=== PATIENT | female | born 1945 | race Caucasian/White ===

== ENCOUNTER → 2016-10-19 | Outpatient (CLI) | payer BC ==
[2015-11-22 13:00] VITALS: BP 113/54
[~2016-10-19] MED LIST: ALPR0.5T PO; ASPI81TA2 PO; BISA5TAB4 PO; CETI10TA22 PO; ESCI20TA10 PO; GUAI12003 PO; HYDR-2666 PO; MORP15TA3 PO; PROAIR HFA8.5 GM INH; RANI150C PO; ROPI1TAB2 PO; SOLI10TA PO; VARE1TAB21 PO
--- NOTE | 2016-10-19 11:33 | KCIC ---
PROCEDURE MRI thoracic spine without contrast. HISTORY Thoracic pain. Bilateral numbness from mid thoracic inferiorly. No known injury. TECHNIQUE Sagittal T1, sagittal T2, sagittal STIR, axial T1, and axial T2 sequences are provided. COMPARISON None. FINDINGS Based on localizing series, the patient appears to have transitional anatomy with only 4 lumbar type vertebral bodies. Numbering for today's exam is counting from the dens. At the level of T4-T5, there is a left intradural extramedullary T1 isointense to cord T2 relatively hyperintense rounded mass measuring 12 x 9 x 9 millimeters. Cord is displaced to the right with cord hyperintensity and flattening, severe cord compression. No additional cord signal abnormality is identified. There are a few perineural cysts. There is no worrisome marrow lesion. There is endplate edema which appears degenerative at T2-T3 and at T6-T7, T7-T8, and T10-T11. There is mild endplate irregularity most notably T10-T11 and T8-T9. Slight anterolisthesis is noted at T1-T2 and T2-T3. Degenerative disc disease including shallow protrusions and disc bulges are noted throughout the thoracic spine. There is also facet hypertrophy in the lower thoracic spine beginning at T7-T8. At the level of T7-T8 there is minimal canal stenosis and at least moderate bilateral foraminal narrowing. There is mild left foraminal narrowing at T8-T9. At T10-T11 there is at least moderate bilateral foraminal narrowing. Report was called to Dr. Mccall at 1130. IMPRESSION - Intradural extramedullary rounded mass at the level of T4-T5 on the left. Differential considerations would include meningioma and nerve sheath tumor. Ependymoma or solitary drop metastasis are lesser considerations. Finding was not definitely present on a CT chest from November 08, 2015. - Significant cord flattening and cord hyperintensity at this level, may represent edema or myelomalacia. - There are degenerative changes noted throughout the thoracic spine as well, with several levels of foraminal narrowing, as described above. Electronically signed by: Wil Adame MD (October 19, 2016 11:32:26)
== END | disposition home or self-care (01) ==
LOC: KCIC MRI 09:06
PROVIDERS: ATTEND Family Medicine
DX: M54.6 Pain in thoracic spine (principal)
CPT/HCPCS: 72146

== ENCOUNTER → 2016-12-21 | Outpatient (CLI) | payer BC, MEDICARE ==
[2016-10-25 23:00] VITALS: BP 107/55
[~2016-12-21] MED LIST changes: +ASPI-630 PO; -ASPI81TA2 PO; -ESCI20TA10 PO; +GADOBUTROL 7.5 MMOL/7.5 ML VIAL IV ONE; -HYDR-2666 PO; +HYDR-2758 PO; +LEXAPRO20 MG PO; -SOLI10TA PO; +SOLI10TA2 PO
--- NOTE | 2016-12-21 14:48 | RAD ---
EXAM: MRI thoracic spine with and without contrast. HISTORY: Follow-up status post meningioma resection. TECHNIQUE: MRI of the thoracic spine was performed before and after the intravenous administration of 7.5 mL Gadavist. COMPARISON: October 23, 2016. FINDINGS: There are laminectomy changes from T4 through T6. There is no recurrent mass at this site. There is myelomalacia along the left lateral aspect of the cord at T4-5. There is a mild S-shaped thoracic scoliosis. No fractures are identified acutely. Endplate edema is secondary to moderate to severe degenerative disc disease from T6 through T9. It is moderate at T10-11 where there is a chronic inferior endplate Schmorl's node at T10. From T2 through T4, there are small posterior disc bulges. There is no central canal stenosis or neural foraminal stenosis. At T4-5, there is a moderate right foraminal protrusion without clear neural foraminal stenosis. There are small to moderate posterior disc bulges from T5 through T7. At T7-8, there is a moderate central and right paracentral protrusion. This abuts the anterior cord with mild deformity. Smaller disc protrusions and herniations at T9-11 do not result in central canal stenosis. Neural foraminal stenosis is mild to moderate bilaterally at T7-8 and on the left at T8-9. It is moderate on the left at T11-12. IMPRESSION: 1. Status post T4-T6 laminectomies and resection of a meningioma. No evidence of recurrence. Myelomalacia is again noted on the left at T4-5. 2. A moderate central protrusion at T8-9 results in mild anterior cord deformity. Smaller disc bulges and protrusions as above. 3. Moderate to severe mid and lower thoracic degenerative disc disease. 4. Multilevel bilateral mild to moderate neural foraminal stenosis as above. Electronically signed by: Will Muñoz MD (12/21/2016 2:45 PM) [id number]
== END | disposition home or self-care (01) ==
LOC: MRI 14:55
PROVIDERS: ATTEND Neurological Surgery
DX: M51.34 Other intervertebral disc degeneration, thoracic region (principal); G95.89 Other specified diseases of spinal cord; M48.04 Spinal stenosis, thoracic region
CPT/HCPCS: 72157; A9585

== ENCOUNTER → 2017-02-12 | Outpatient (CLI) | payer BC ==
[2016-10-25 23:00] VITALS: BP 107/55
[~2017-02-12] MED LIST changes: -GADOBUTROL 7.5 MMOL/7.5 ML VIAL IV ONE
--- NOTE | 2017-02-12 13:51 | KCIC ---
Examination: 2 views of the chest HISTORY: History of difficult breathing COMPARISON: 11/14/2016 FINDINGS: The cardiomediastinal silhouette grossly appears unremarkable. There is no acute infiltrate or visualized pneumothorax. Moderate degenerative changes thoracic spine. IMPRESSION: No acute cardiopulmonary findings Electronically signed by: Az De La Cruz MD (02/12/2017 1:47 PM) [facility]
== END | disposition home or self-care (01) ==
LOC: KCIC 11:57
PROVIDERS: ATTEND Family Medicine
DX: J44.9 Chronic obstructive pulmonary disease, unspecified (principal); M47.894 Other spondylosis, thoracic region; R93.8 Abnormal findings on diagnostic imaging of other specified body structures
CPT/HCPCS: 71020

== ENCOUNTER 2017-07-31 11:54 | Emergency (ER) | payer BC, MEDICARE ==
[2017-07-31 12:15] LABS: POC GLUCOSE 100 mg/dL (70-99)
[2017-07-31 12:15] LABS: ADD MAN DIFF? NO
[2017-07-31 12:25] LABS: BASO # 0.2 x10^3/uL (0.0-0.2); BASO % 2 % (0-3); EOS # 0.4 x10^3/uL (0.0-0.7); EOS % 4 % (0-3); HEMATOCRIT 43.9 % (36.0-47.0); HEMOGLOBIN 14.8 g/dL (12.0-15.5); LYMPH # 4.5 x10^3/uL (1.0-4.8); LYMPH % 46 % (24-48); MEAN CORPUSCULAR HEMOGLOBIN 32 pg (25-35); MEAN CORPUSCULAR HGB CONC 34 g/dL (31-37); MEAN CORPUSCULAR VOLUME 94 fL (79-100); MONO # 0.8 x10^3/uL (0.0-1.1); MONO % 8 % (0-9); NEUT # 3.9 x10^3uL (1.8-7.7); NEUT % 40 % (31-73); PLATELET COUNT 281 x10^3/uL (140-400); RED BLOOD COUNT 4.67 x10^6/uL (3.50-5.40); RED CELL DISTRIBUTION WIDTH 12.5 % (11.5-14.5); WHITE BLOOD COUNT 9.7 x10^3/uL (4.0-11.0)
[2017-07-31 12:31] LABS: ANION GAP 9 (6-14); BLOOD UREA NITROGEN 21 mg/dL (7-20); BUN/CREATININE RATIO 23 (6-20); CALCIUM 9.4 mg/dL (8.5-10.1); CARBON DIOXIDE 30 mmol/L (21-32); CHLORIDE 100 mmol/L (98-107); CREATININE 0.9 mg/dL (0.6-1.0); GFR 61.9; GLUCOSE 118 mg/dL (70-99); POTASSIUM 3.6 mmol/L (3.5-5.1); SODIUM 139 mmol/L (136-145)
[2017-07-31 12:36] LABS: ALBUMIN 3.7 g/dL (3.4-5.0); ALK PHOS 54 U/L (46-116); ALT (SGPT) 28 U/L (14-59); AST (SGOT) 20 U/L (15-37); TOTAL BILIRUBIN 0.3 mg/dL (0.2-1.0); TOTAL PROTEIN 7.5 g/dL (6.4-8.2)
[2017-07-31] MEDS: IV NORMAL SALINE 1000ML BAG 1,000 ML IV ×2 (12:59)
[2017-07-31] MEDS: ONDANSETRON PF 4 MG/2 ML VIAL. IV ×2 (13:00)
[2017-07-31 13:22] LABS: BILIRUBIN,URINE NEGATIVE (NEG); CLARITY,URINE CLEAR; COLOR,URINE YELLOW; GLUCOSE,URINE NEGATIVE (NEG); NITRITE,URINE NEGATIVE (NEG); PROTEIN,URINE NEGATIVE (NEG-TRACE); UROBILINOGEN,URINE 0.2 mg/dL (0.2 mg/dL)
[2017-07-31 13:36] LABS: BACTERIA,URINE MODERATE /HPF (0-FEW); HYALINE CASTS, URINE FEW /HPF; RBC,URINE 0 /HPF (0-2); SQUAMOUS EPITHELIAL CELL,UR MOD /LPF
[2017-07-31] MEDS: LIDO:MAALOX:DONNATAL 1:1:1 15 ML SINGLE DOSE SWSW ×2 (15:48)
== END 2017-07-31 16:03 | disposition home or self-care (01) ==
LOC: ER 11:54
DX: R55 Syncope and collapse (principal); R11.0 Nausea; R42 Dizziness and giddiness; R53.1 Weakness; G89.29 Other chronic pain; J44.9 Chronic obstructive pulmonary disease, unspecified; F32.9 Major depressive disorder, single episode, unspecified; E78.00 Pure hypercholesterolemia, unspecified; G25.81 Restless legs syndrome; Z90.710 Acquired absence of both cervix and uterus; Z91.048 Other nonmedicinal substance allergy status
CPT/HCPCS: 36415; 80053; 81001; 82962; 85025; 87086; 93005; 96361; 96374; 99285-25; J2405; J7030

== ENCOUNTER → 2017-08-20 | Outpatient (CLI) | payer BC, MEDICARE | END | disposition home or self-care (01) | LOC: ECHO 13:19 | DX: I08.2 Rheumatic disorders of both aortic and tricuspid valves (principal) | CPT/HCPCS: 93306 ==

== ENCOUNTER → 2017-11-13 | Outpatient (CLI) | payer BC | END | disposition home or self-care (01) | LOC: KCIC US 08:00 | DX: R10.12 Left upper quadrant pain (principal); I10 Essential (primary) hypertension; E11.9 Type 2 diabetes mellitus without complications; E78.5 Hyperlipidemia, unspecified | CPT/HCPCS: 76700 ==

== ENCOUNTER → 2017-12-05 | Outpatient (CLI) | payer BC | END | disposition home or self-care (01) | LOC: US 14:45 | DX: E04.1 Nontoxic single thyroid nodule (principal) | CPT/HCPCS: 76536 ==

== ENCOUNTER → 2017-12-26 | Outpatient (CLI) | payer BC ==
[~2017-12-26] MED LIST changes: -ALPR0.5T PO; -ASPI-630 PO; -BISA5TAB4 PO; -CETI10TA22 PO; -GUAI12003 PO; -HYDR-2758 PO; -LEXAPRO20 MG PO; +LIDOCAINE 1% Multi-Dose 50 ML VIAL. INJ; -MORP15TA3 PO; -PROAIR HFA8.5 GM INH; -RANI150C PO; -ROPI1TAB2 PO; -SOLI10TA2 PO; -VARE1TAB21 PO
== END | disposition home or self-care (01) ==
LOC: US 09:54
DX: E04.1 Nontoxic single thyroid nodule (principal)
CPT/HCPCS: 76942; 88173; 88305

== ENCOUNTER 2018-02-05 06:48 | Emergency (ER) | payer BC, MEDICARE ==
[~2018-02-05] VITALS: Ht 152.4 cm; Wt 86.2 kg
[~2018-02-05 06:48] MED LIST changes: +ALPR0.5T PO; +ASPI-630 PO; +BISA5TAB4 PO; +CETI10TA22 PO; +GUAI12003 PO; +HYDR-2758 PO; +LEXAPRO20 MG PO; -LIDOCAINE 1% Multi-Dose 50 ML VIAL. INJ; +MORP15TA3 PO; +PROAIR HFA8.5 GM INH; +RANI150C PO; +ROPI1TAB2 PO; +SOLI10TA2 PO; +TOLT2CAP PO; +VARE1TAB21 PO
--- NOTE | 2018-02-05 07:15 | PHYS DOC ---
Past Medical History Past Medical History: COPD, Depression, High Cholesterol Additional Past Medical Histor: seasonal allergies, T4-5 compression, restless leg Past Surgical History: Hysterectomy Additional Past Surgical Histo: r)carpal tunnel ulner,trigger finger r),r)ight shoulder FX,rib fx,back Alcohol Use: None Drug Use: None Adult General Chief Complaint Chief Complaint: SHORTNESS OF BREATH HPI HPI Patient is a 72-year-old female who presents complaining of approximately 2 month history of shortness of breath. Patient states that she has had several different studies to include an echocardiogram as well as EGD. She was told that she has severe COPD. Patient states symptoms are getting worse and she is scheduled to see her orthopedic cast specialist next week but felt like she was not able to wait. She does admit to lower extremity swelling and she was recently placed on HCTZ to relieve the edema. She does indicate that she has some discomfort in her chest that she describes as sharpness. She states that she has pain in her back that she believes is her lower lungs. She denies any significant cough. She also denies any fever. Patient states symptoms are worse at night and with exertion. She states that nothing is improving her symptoms. Review of Systems Review of Systems Constitutional: Denies fever or chills [] Respiratory: Complains of shortness of breath[] Cardiovascular: Complains of chest tightness[] GI: Denies abdominal pain, nausea, vomiting or diarrhea [] Musculoskeletal: Complains of mid back pain[] Integument: Denies rash or skin lesions [] All other systems were reviewed and found to be within normal limits, except as documented in this note. Current Medications Current Medications Current Medications Medications (Trade) Dose Ordered Sig/Deja Start Time Stop Time Status Last Admin Dose Admin Albuterol/ Ipratropium (Duoneb) 3 ml 1X ONCE 02/05/18 07:30 02/05/18 07:31 DC 02/05/18 07:53 3 ML Info (CONTRAST GIVEN -- Rx MONITORING) 1 each PRN DAILY PRN 02/05/18 08:45 02/07/18 08:44 Iohexol (Omnipaque 300 Mg/ml) 60 ml 1X ONCE 02/05/18 08:45 02/05/18 08:46 DC 02/05/18 08:42 60 ML Allergies Allergies Allergies Coded Allergies Type Severity Reaction Last Updated Verified adhesive tape Allergy Intermediate 5/10/17 Yes nickel Allergy Intermediate 10/25/16 Yes Physical Exam Physical Exam Constitutional: Well developed, well nourished, no acute distress, non-toxic appearance. [] HENT: Normocephalic, atraumatic, bilateral external ears normal, oropharynx moist, no oral exudates, nose normal. [] Eyes: PERRLA, EOMI, conjunctiva normal, no discharge. [] Neck: Normal range of motion, no tenderness, supple, no stridor. [] Cardiovascular:Heart rate regular rhythm [] Lungs & Thorax: There are reduced breath sounds with coarse rhonchi in the right lower lobe with good air movement noted throughout the left lung ramirez[] Abdomen: Bowel sounds normal, soft. [] Skin: Warm, dry, no erythema, no rash. [] Extremities: No tenderness, no cyanosis, no clubbing, ROM intact, with nonpitting edema. [] Neurologic: Alert and oriented X 3, normal motor function, normal sensory function, no focal deficits noted. [] Current Patient Data Vital Signs Vital Signs Date Time Temp Pulse Resp B/P (MAP) Pulse Ox O2 Delivery O2 Flow Rate FiO2 02/05/18 08:50 85 20 104/55 (71) 90 Room Air 02/05/18 07:02 98.2 98.2 Lab Values Laboratory Tests Test 02/05/18 07:25 White Blood Count 7.1 x10^3/uL (4.0-11.0) Red Blood Count 4.79 x10^6/uL (3.50-5.40) Hemoglobin 15.2 g/dL (12.0-15.5) Hematocrit 44.4 % (36.0-47.0) Mean Corpuscular Volume 93 fL (79-100) Mean Corpuscular Hemoglobin 32 pg (25-35) Mean Corpuscular Hemoglobin Concent 34 g/dL (31-37) Red Cell Distribution Width 12.5 % (11.5-14.5) Platelet Count 280 x10^3/uL (140-400) Neutrophils (%) (Auto) 55 % (31-73) Lymphocytes (%) (Auto) 32 % (24-48) Monocytes (%) (Auto) 8 % (0-9) Eosinophils (%) (Auto) 4 % (0-3) H Basophils (%) (Auto) 1 % (0-3) Neutrophils # (Auto) 3.9 x10^3uL (1.8-7.7) Lymphocytes # (Auto) 2.2 x10^3/uL (1.0-4.8) Monocytes # (Auto) 0.6 x10^3/uL (0.0-1.1) Eosinophils # (Auto) 0.3 x10^3/uL (0.0-0.7) Basophils # (Auto) 0.1 x10^3/uL (0.0-0.2) D-Dimer (Jessica) 1.57 ug/mlFEU (0.00-0.50) H Sodium Level 137 mmol/L (136-145) Potassium Level 4.0 mmol/L (3.5-5.1) Chloride Level 102 mmol/L (98-107) Carbon Dioxide Level 28 mmol/L (21-32) Anion Gap 7 (6-14) Blood Urea Nitrogen 16 mg/dL (7-20) Creatinine 1.0 mg/dL (0.6-1.0) Estimated GFR (Cockcroft-Gault) 54.8 BUN/Creatinine Ratio 16 (6-20) Glucose Level 111 mg/dL (70-99) H Calcium Level 8.9 mg/dL (8.5-10.1) Total Bilirubin 0.3 mg/dL (0.2-1.0) Aspartate Amino Transferase (AST) 19 U/L (15-37) Alanine Aminotransferase (ALT) 27 U/L (14-59) Alkaline Phosphatase 61 U/L (46-116) Troponin I Quantitative < 0.017 ng/mL (0.000-0.055) CX-Izm-F-Type Natriuretic Peptide 37 pg/mL (0-124) Total Protein 7.0 g/dL (6.4-8.2) Albumin 3.8 g/dL (3.4-5.0) Albumin/Globulin Ratio 1.2 (1.0-1.7) Laboratory Tests 02/05/18 07:25 Laboratory Tests 02/05/18 07:25 EKG EKG [] Interpretation Time: EKG demonstrates normal sinus rhythm with rate of 82. There are premature supraventricular complexes noted. Nonspecific ST-T wave changes are noted. Radiology/Procedures Radiology/Procedures [] Impressions: Chest x-ray and PE study demonstrate no acute process. Course & Med Decision Making Course & Med Decision Making Pertinent Labs and Imaging studies reviewed. (See chart for details) [] Dragon Disclaimer Dragon Disclaimer This electronic medical record was generated, in whole or in part, using a voice recognition dictation system. Departure Departure Impression: Primary Impression: COPD (chronic obstructive pulmonary disease) Disposition: HOME, SELF-CARE Condition: STABLE Referrals: JAYME PROCTOR MD (PCP) Patient Instructions: Chronic Obstructive Pulmonary Disease Additional Instructions: Keep appointment with her orthopedic cast specialist for next Sunday. Schedule follow-up appointment with your primary care provider in the next few days. Return to emergency room if you have acute worsening of symptoms. Problem Qualifiers Primary Impression: COPD (chronic obstructive pulmonary disease) COPD type: unspecified COPD Qualified Codes: J44.9 - Chronic obstructive pulmonary disease, unspecified ARANZA ANGLIN Jr., DO Feb 05, 2018 07:15
[2018-02-05] MEDS ORDERED: IPRATRPIUM/ALBUTEROL 0.5/2.5MG 3 ML NEBU. NEB ONE (07:30)
--- NOTE | 2018-02-05 07:39 | EKG ---
[facility] [address] [place] [address] Test Date: 2018-02-05 Test Time: 07:25:10 Pat Name: JOLENE SHARMA Department: Room: Gender: F Vessel Engineer: : 1945 Requested By: ARANZA ANGLIN Order Number: [id number] Reading MD: Yasmani Chairez MD Measurements Intervals [place] Rate: 81 P: 47 NH: 148 QRS: 16 QRSD: 74 T: -17 QT: 358 QTc: 421 Interpretive Statements SINUS RHYTHM NON-SPECIFIC ST/T CHANGES Electronically Signed On 02-05-2018 12:07:08 CDT by Yasmani Chairez MD
[2018-02-05 07:40] LABS: BASO # 0.1 x10^3/uL (0.0-0.2); BASO % 1 % (0-3); EOS # 0.3 x10^3/uL (0.0-0.7); EOS % 4 % (0-3); HEMATOCRIT 44.4 % (36.0-47.0); HEMOGLOBIN 15.2 g/dL (12.0-15.5); LYMPH # 2.2 x10^3/uL (1.0-4.8); LYMPH % 32 % (24-48); MEAN CORPUSCULAR HEMOGLOBIN 32 pg (25-35); MEAN CORPUSCULAR HGB CONC 34 g/dL (31-37); MEAN CORPUSCULAR VOLUME 93 fL (79-100); MONO # 0.6 x10^3/uL (0.0-1.1); MONO % 8 % (0-9); NEUT # 3.9 x10^3uL (1.8-7.7); NEUT % 55 % (31-73); PLATELET COUNT 280 x10^3/uL (140-400); RED BLOOD COUNT 4.79 x10^6/uL (3.50-5.40); RED CELL DISTRIBUTION WIDTH 12.5 % (11.5-14.5); WHITE BLOOD COUNT 7.1 x10^3/uL (4.0-11.0)
[2018-02-05 07:50] LABS: CALCIUM 8.9 mg/dL (8.5-10.1); GFR 54.8
[2018-02-05 07:56] LABS: ALBUMIN 3.8 g/dL (3.4-5.0); ALBUMIN/GLOBULIN RATIO 1.2 (1.0-1.7); TOTAL BILIRUBIN 0.3 mg/dL (0.2-1.0)
--- NOTE | 2018-02-05 08:03 | RAD ---
Chest, 2 views, 02/05/2018: HISTORY: Shortness of breath, COPD Comparison is made to a study from 02/12/2017. The heart size is normal. There is calcific plaquing of the thoracic aorta. The pulmonary vascularity is within normal limits. There is mild scarring in the lingula. No acute infiltrate is seen. There is no evidence of pleural fluid. Scattered degenerative changes are present in the spine. IMPRESSION: No acute cardiopulmonary abnormality is detected. Electronically signed by: Kiel Corea MD (02/05/2018 8:00 AM) [facility]
[2018-02-05] MEDS ORDERED: CONTRAST GIVEN. MC PRN (08:45)
[2018-02-05] MEDS ORDERED: IOHEXOL 300 MG/ML 100ML VIAL. IV ONE (08:45)
[2018-02-05 08:50] VITALS: BP 104/55
--- NOTE | 2018-02-05 09:40 | RAD ---
Chest CTA History: Shortness of breath for one month Technique: After bolus of intravenous contrast, CT imaging was performed of the chest. Multiplanar reconstruction images to include MIP reconstruction images are submitted. Exposure: One or more of the following individualized dose reduction techniques were utilized for this examination: 1. Automated exposure control 2. Adjustment of the mA and/or kV according to patient size 3. Use of iterative reconstruction technique. Contrast: 60 cc Omnipaque 300 Comparison: November 15, [address] Findings: [ No pulmonary embolism is identified. Thoracic aortic caliber is within normal limits without intraluminal flap. There is coronary calcification. No significantly enlarged nodes are identified of the chest. There is more heterogeneous density of the right breast which is not fully included as seen previously. There is stable mild fullness of the left adrenal gland. There is no pericardial or pleural effusion, pneumothorax, new infiltrate. There is a small focus of consolidation of the lingula as seen previously. Major airways are patent. There are old right posterior lateral sixth and seventh rib fractures. There is centrilobular emphysema. Poorly evaluated, there is again right thyroid nodule difficult to otherwise characterize. There is multilevel thoracic degenerative disc disease and spondylosis. Impression: 1. No pulmonary embolism is identified, also no new infiltrate or pleural fluid. There is a small focus of consolidation of the lingula as seen previously. There is centrilobular emphysema. 2. There is coronary calcification. 3. There is right thyroid nodule although poorly characterized, has been biopsied since previous exam. Electronically signed by: Dane Carrillo MD (02/05/2018 9:36 AM) [id number]
== END 2018-02-05 10:48 | disposition home or self-care (01) ==
LOC: ER 06:48
DX: J44.9 Chronic obstructive pulmonary disease, unspecified (principal); M54.6 Pain in thoracic spine; E78.00 Pure hypercholesterolemia, unspecified; F32.9 Major depressive disorder, single episode, unspecified; Z90.710 Acquired absence of both cervix and uterus; Z98.890 Other specified postprocedural states; Z88.8 Allergy status to other drugs, medicaments and biological substances
CPT/HCPCS: 36415; 71046; 71275; 80053; 83880; 84484; 85025; 85379; 93005; 94640; 99285; J7620; Q9967

== ENCOUNTER → 2018-03-19 | Outpatient (CLI) | payer BC, MEDICARE ==
--- NOTE | 2018-03-20 12:57 | RAD ---
DATE: 03/19/2018 EXAM: MAMMO NAYLA SCREENING BILATERAL HISTORY: Routine screening COMPARISON: None available This study was interpreted with the benefit of Computerized Aided Detection (CAD). Breast Density: SCATTERED The breast parenchyma shows scattered fibroglandular densities. Breast parenchyma level B. FINDINGS: 2-D and 3-D tomosynthesis imaging was performed in CC and MLO projections. There are small benign-appearing lymph node type densities in the lateral aspects of both breasts. There is increased density anteriorly in the upper right breast compared to the left as best seen on the oblique views. The oblique tomosynthesis images suggests slight architectural distortion in this region. There is a given history of a breast biopsy, however, the patient does not remember which breast was biopsied. Benign type calcifications are present in both breasts. No suspicious microcalcifications are evident. IMPRESSION: Mild breast asymmetry as described above which may be postsurgical. In the absence of old mammograms to establish stability, sonographic evaluation of the right breast is suggested. BI-RADS CATEGORY: 0 INCOMPLETE: NEEDS ADDITIONAL IMAGING EVALUATION AND/OR PRIOR MAMMOGRAMS FOR COMPARISON. RECOMMENDED FOLLOW-UP: ADD ADDITIONAL IMAGING PQRS compliance statement: Patient information was entered into a reminder system with a target due date for the next mammogram. Mammography is a sensitive method for finding small breast cancers, but it does not detect them all and is not a substitute for careful clinical examination. A negative mammogram does not negate a clinically suspicious finding and should not result in delay in biopsying a clinically suspicious abnormality. "Our facility is accredited by the [employer] Mammography Program."
== END | disposition home or self-care (01) ==
LOC: MAMMO 13:48
PROVIDERS: ATTEND Family Medicine
DX: Z12.31 Encounter for screening mammogram for malignant neoplasm of breast (principal); I10 Essential (primary) hypertension; E11.9 Type 2 diabetes mellitus without complications; E78.00 Pure hypercholesterolemia, unspecified; E78.5 Hyperlipidemia, unspecified; J43.9 Emphysema, unspecified; K21.9 Gastro-esophageal reflux disease without esophagitis; G47.33 Obstructive sleep apnea (adult) (pediatric); Z87.891 Personal history of nicotine dependence; Z90.710 Acquired absence of both cervix and uterus; Z88.8 Allergy status to other drugs, medicaments and biological substances; Z82.49 Family history of ischemic heart disease and other diseases of the circulatory system
CPT/HCPCS: 77063; 77067

== ENCOUNTER → 2018-03-25 | Outpatient (CLI) | payer BC, MEDICARE ==
--- NOTE | 2018-03-25 10:52 | RAD ---
Right breast ultrasound, 03/25/2018: History: Suspicious screening study The right breast was carefully scanned. There are heterogeneous fibroglandular shadows. No solid mass or abnormal fluid collection is seen in the upper outer quadrant to correspond to the area of asymmetry seen on the mammograms. At the 2:00 location approximately 7 cm from the nipple there is a elongated mildly hypoechoic process measuring 10 x 8 x 3 mm. In the radial plane there is a suggestion of an echogenic hilum. This may represent an intramammary lymph node. No other right abnormality is seen. IMPRESSION: 1. No definite sonographic correlate for the right breast asymmetry evident on the mammograms. 2. Probably benign small nodule at the 2:00 location. 3. Follow-up right mammography and right breast ultrasound in 6 months is suggested. BI-RADS 3-probably benign findings
== END | disposition home or self-care (01) ==
LOC: US 09:52
PROVIDERS: ATTEND Family Medicine
DX: R92.8 Other abnormal and inconclusive findings on diagnostic imaging of breast (principal)
CPT/HCPCS: 76641

== ENCOUNTER 2018-04-15 12:05 | Emergency (ER) | payer BC, MEDICARE ==
[~2018-04-15] VITALS: Ht 152.4 cm; Wt 86.2 kg
[2018-04-15] MEDS ORDERED: IV NORMAL SALINE 1000ML BAG 1,000 ML IV ONE (13:30)
[2018-04-15] MEDS ORDERED: IPRATRPIUM/ALBUTEROL 0.5/2.5MG 3 ML NEBU. NEB ONE (13:30)
--- NOTE | 2018-04-15 13:32 | EKG ---
[facility] [address] [place] [address] Test Date: 2018-04-15 Test Time: 13:05:52 Pat Name: JOLENE SHARMA Department: Room: Gender: F Banking Paralegal: : 1945 Requested By: DEE DEE KHAN Order Number: [id number] Reading MD: Yasmani Chairez MD Measurements Intervals [place] Rate: 92 P: 14 UT: 142 QRS: 22 QRSD: 78 T: 16 QT: 342 QTc: 427 Interpretive Statements SINUS RHYTHM PAC'S NON-SPECIFIC ST/T CHANGES Electronically Signed On 04-18-2018 11:48:22 CDT by Yasmani Chairez MD
[2018-04-15 13:45] LABS: BASO # 0.1 x10^3/uL (0.0-0.2); BASO % 1 % (0-3); EOS % 0 % (0-3); HEMATOCRIT 44.9 % (36.0-47.0); HEMOGLOBIN 15.7 g/dL (12.0-15.5); LYMPH # 1.7 x10^3/uL (1.0-4.8); LYMPH % 14 % (24-48); MEAN CORPUSCULAR HEMOGLOBIN 32 pg (25-35); MEAN CORPUSCULAR HGB CONC 35 g/dL (31-37); MEAN CORPUSCULAR VOLUME 91 fL (79-100); MONO # 0.6 x10^3/uL (0.0-1.1); MONO % 5 % (0-9); NEUT # 9.5 x10^3uL (1.8-7.7); NEUT % 80 % (31-73); PLATELET COUNT 333 x10^3/uL (140-400); RED BLOOD COUNT 4.94 x10^6/uL (3.50-5.40); RED CELL DISTRIBUTION WIDTH 13.3 % (11.5-14.5); WHITE BLOOD COUNT 11.8 x10^3/uL (4.0-11.0)
[2018-04-15] MEDS ORDERED: methylPREDNISolone SOD SUCC PF 125 MG/2 ML VIAL. IV ONE (13:45)
[2018-04-15 13:59] LABS: CALCIUM 9.7 mg/dL (8.5-10.1); CREATININE 1.1 mg/dL (0.6-1.0); GFR 49.1; POTASSIUM 4.4 mmol/L (3.5-5.1)
[2018-04-15 14:05] LABS: ALBUMIN 3.7 g/dL (3.4-5.0); ALBUMIN/GLOBULIN RATIO 0.9 (1.0-1.7); TOTAL BILIRUBIN 0.3 mg/dL (0.2-1.0); TOTAL PROTEIN 7.7 g/dL (6.4-8.2)
--- NOTE | 2018-04-15 14:31 | RAD ---
PORTABLE CHEST 1V History: SHORTNESS OF BREATH WORSE OVER THE LAST WEEK THAN NORMAL. Comparison: February 05, 2018 Cardiomediastinal silhouette: Stable Lungs: Hyperexpansion compatible with emphysema redemonstrated. No focal consolidating infiltrate. Mild prominent interstitial markings are redemonstrated, may be fibrosis. Pleura: No evidence of pleural effusion. Pneumothorax: None visualized Impression: No acute consolidating infiltrate. Electronically signed by: Tato Nelson MD (04/15/2018 2:28 PM) [id number]
[2018-04-15] MEDS ORDERED: PRED20TA PO (14:57)
--- NOTE | 2018-04-15 15:08 | PHYS DOC ---
Past Medical History Past Medical History: COPD, Depression, High Cholesterol Additional Past Medical Histor: seasonal allergies, T4-5 compression, restless leg Past Surgical History: Hysterectomy Additional Past Surgical Histo: r)carpal tunnel ulner,trigger finger r),r)ight shoulder FX,rib fx,back Alcohol Use: None Drug Use: None Adult General Chief Complaint Chief Complaint: SHORTNESS OF BREATH HPI HPI Patient is a 72 year old\ female who presents with chief complaint shortness of breath cough chest feels tight with coughing sinus congestion for the last 2 weeks she has received Levaquin she is on day 6 of 10 she is also at the end of a prednisone taper as well as using albuterol nebs but she says she is just concerned because his symptoms do not seem to be getting much better she is also overall very concerned about her overall quality of life related to her underlying COPD that she has had for the last couple of years. She denies fever she denies hemoptysis she denies leg swelling symptoms are moderate slowly worsening with time. Review of Systems Review of Systems Constitutional: Denies fever or chills [] Eyes: Denies change in visual acuity, redness, or eye pain [] HENT: : Denies dysuria or hematuria [] Musculoskeletal: Integument: Denies rash or skin lesions [] Neurologic: Denies headache, focal weakness or sensory changes [] All other systems were reviewed and found to be within normal limits, except as documented in this note. Current Medications Current Medications Current Medications Medications (Trade) Dose Ordered Sig/Deja Start Time Stop Time Status Last Admin Dose Admin Albuterol/ Ipratropium (Duoneb) 3 ml 1X ONCE 04/15/18 13:30 04/15/18 13:31 DC 04/15/18 13:45 3 ML Methylprednisolone Sodium Succinate (SOLU-Medrol 125MG VIAL) 125 mg 1X ONCE 04/15/18 13:45 04/15/18 13:46 DC 04/15/18 13:40 125 MG Sodium Chloride 1,000 ml @ 1,000 mls/hr 1X ONCE 04/15/18 13:30 04/15/18 14:29 DC 04/15/18 13:30 1,000 MLS/HR Allergies Allergies Allergies Coded Allergies Type Severity Reaction Last Updated Verified adhesive tape Allergy Intermediate 10/25/16 Yes nickel Allergy Intermediate 10/25/16 Yes Physical Exam Physical Exam Constitutional: Well developed, well nourished, no acute distress, non-toxic appearance. [] HENT: Normocephalic, atraumatic, bilateral external ears normal, oropharynx moist, no oral exudates, nose normal. [] Eyes: PERRLA, EOMI, conjunctiva normal, no discharge. [] Neck: Normal range of motion, no tenderness, supple, no stridor. [] Cardiovascular:Heart rate regular rhythm, no murmur [] Lungs & Thorax: Decreased breath sounds bilateral bases with prolonged expiratory phase faint wheezing noted Abdomen: Bowel sounds normal, soft, no tenderness, no masses, no pulsatile masses. [] Skin: Warm, dry, no erythema, no rash. [] Back: No tenderness, no CVA tenderness. [] Extremities: No tenderness, no cyanosis, no clubbing, ROM intact, no edema. [] Neurologic: Alert and oriented X 3, normal motor function, normal sensory function, no focal deficits noted. [] Psychologic: Affect normal, judgement normal, mood normal. []Intermittently tearful but easily redirectable Current Patient Data Vital Signs Vital Signs Date Time Temp Pulse Resp B/P (MAP) Pulse Ox O2 Delivery O2 Flow Rate FiO2 04/15/18 13:46 97 Room Air 04/15/18 13:05 98.2 100 22 140/81 (100) 98.2 Lab Values Laboratory Tests Test 04/15/18 13:00 White Blood Count 11.8 x10^3/uL (4.0-11.0) H Red Blood Count 4.94 x10^6/uL (3.50-5.40) Hemoglobin 15.7 g/dL (12.0-15.5) H Hematocrit 44.9 % (36.0-47.0) Mean Corpuscular Volume 91 fL (79-100) Mean Corpuscular Hemoglobin 32 pg (25-35) Mean Corpuscular Hemoglobin Concent 35 g/dL (31-37) Red Cell Distribution Width 13.3 % (11.5-14.5) Platelet Count 333 x10^3/uL (140-400) Neutrophils (%) (Auto) 80 % (31-73) H Lymphocytes (%) (Auto) 14 % (24-48) L Monocytes (%) (Auto) 5 % (0-9) Eosinophils (%) (Auto) 0 % (0-3) Basophils (%) (Auto) 1 % (0-3) Neutrophils # (Auto) 9.5 x10^3uL (1.8-7.7) H Lymphocytes # (Auto) 1.7 x10^3/uL (1.0-4.8) Monocytes # (Auto) 0.6 x10^3/uL (0.0-1.1) Eosinophils # (Auto) 0.0 x10^3/uL (0.0-0.7) Basophils # (Auto) 0.1 x10^3/uL (0.0-0.2) Sodium Level 139 mmol/L (136-145) Potassium Level 4.4 mmol/L (3.5-5.1) Chloride Level 101 mmol/L (98-107) Carbon Dioxide Level 27 mmol/L (21-32) Anion Gap 11 (6-14) Blood Urea Nitrogen 23 mg/dL (7-20) H Creatinine 1.1 mg/dL (0.6-1.0) H Estimated GFR (Cockcroft-Gault) 49.1 BUN/Creatinine Ratio 21 (6-20) H Glucose Level 109 mg/dL (70-99) H Calcium Level 9.7 mg/dL (8.5-10.1) Total Bilirubin 0.3 mg/dL (0.2-1.0) Aspartate Amino Transferase (AST) 14 U/L (15-37) L Alanine Aminotransferase (ALT) 25 U/L (14-59) Alkaline Phosphatase 52 U/L (46-116) Troponin I Quantitative < 0.017 ng/mL (0.000-0.055) IJ-Vss-U-Type Natriuretic Peptide 68 pg/mL (0-124) Total Protein 7.7 g/dL (6.4-8.2) Albumin 3.7 g/dL (3.4-5.0) Albumin/Globulin Ratio 0.9 (1.0-1.7) L Laboratory Tests 04/15/18 13:00 Laboratory Tests 04/15/18 13:00 EKG EKG []EKG shows a normal sinus rhythm with a rate of 93 there are T-wave inversions in V3 which were also present on old EKG dated February 05, 2018 no acute STEMI Radiology/Procedures Radiology/Procedures [] Impressions: Comparison: February 05, 2018 Cardiomediastinal silhouette: Stable Lungs: Hyperexpansion compatible with emphysema redemonstrated. No focal consolidating infiltrate. Mild prominent interstitial markings are redemonstrated, may be fibrosis. Pleura: No evidence of pleural effusion. Pneumothorax: None visualized Impression: No acute consolidating infiltrate. Electronically signed by: Tato Nelson MD (04/15/2018 2:28 PM) [facility] Course & Med Decision Making Course & Med Decision Making Pertinent Labs and Imaging studies reviewed. (See chart for details) []9-year-old female with known COPD who is presenting with symptoms consistent with the same. Patient was given Solu-Medrol and albuterol in the emergency room and after treatment she said she felt much better she was breathing more comfortably. Chest x-ray showed no pneumonia the EKG and troponin were negative. Patient is feeling much better oxygen saturation is in the mid 90s. We talked about other options and we agree that we would prolong her prednisone taper by a few days so she was given a prescription to that effect otherwise continue the antibiotics continue nebulizers and hopefully her bronchitis will improve soon. Return precautions discussed and she was understanding of instructions. Dragon Disclaimer Dragon Disclaimer This electronic medical record was generated, in whole or in part, using a voice recognition dictation system. Departure Departure Impression: Primary Impression: Bronchitis Disposition: 01 HOME, SELF-CARE Condition: STABLE Patient Instructions: Bronchitis, Ryid-eq-Xueh Scripts Prednisone (PREDNISONE) 20 Mg Tablet 1 TAB PO DAILY, #4 TAB Prov: DEE DEE KHAN MD 04/15/18 DEE DEE HKAN MD Apr 15, 2018 15:08
[2018-04-15 15:10] VITALS: BP 130/75
== END 2018-04-15 15:05 | disposition home or self-care (01) ==
LOC: ER 12:05
DX: J40 Bronchitis, not specified as acute or chronic (principal); J44.9 Chronic obstructive pulmonary disease, unspecified; F32.9 Major depressive disorder, single episode, unspecified; E78.00 Pure hypercholesterolemia, unspecified; Z90.710 Acquired absence of both cervix and uterus; Z88.8 Allergy status to other drugs, medicaments and biological substances; Z91.048 Other nonmedicinal substance allergy status
CPT/HCPCS: 99285; J2930; J7030; J7620; 36415; 71045; 80053; 83880; 84484; 85025; 93005; 94640; 96374

== ENCOUNTER 2018-04-17 20:35 | Inpatient (IN) | payer MEDICARE, BC ==
[~2018-04-17] VITALS: Ht 152.4 cm; Wt 88.9 kg
[~2018-04-17 20:35] MED LIST changes: +PRED20TA PO
[2018-04-17 21:32] LABS: BASO # 0.1 x10^3/uL (0.0-0.2); BASO % 0 % (0-3); EOS % 0 % (0-3); HEMATOCRIT 44.2 % (36.0-47.0); HEMOGLOBIN 15.2 g/dL (12.0-15.5); LYMPH # 1.6 x10^3/uL (1.0-4.8); LYMPH % 11 % (24-48); MEAN CORPUSCULAR HEMOGLOBIN 32 pg (25-35); MEAN CORPUSCULAR HGB CONC 35 g/dL (31-37); MEAN CORPUSCULAR VOLUME 92 fL (79-100); MONO # 0.4 x10^3/uL (0.0-1.1); MONO % 2 % (0-9); NEUT # 12.4 x10^3uL (1.8-7.7); NEUT % 86 % (31-73); PLATELET COUNT 309 x10^3/uL (140-400); RED BLOOD COUNT 4.81 x10^6/uL (3.50-5.40); RED CELL DISTRIBUTION WIDTH 13.6 % (11.5-14.5); WHITE BLOOD COUNT 14.4 x10^3/uL (4.0-11.0)
[2018-04-17 21:56] LABS: % EOS 1 % (0-5); % LYMPHS 7 % (24-48); % MONOS 2 % (0-10); % SEGS 90 % (35-66)
[2018-04-17 21:57] LABS: PLT ESTIMATE ADEQUATE (ADEQUATE)
[2018-04-17 22:04] LABS: CALCIUM 9.1 mg/dL (8.5-10.1); CREATININE 1.3 mg/dL (0.6-1.0); GFR 40.5; POTASSIUM 4.1 mmol/L (3.5-5.1)
[2018-04-17] MEDS ORDERED: IPRATRPIUM/ALBUTEROL 0.5/2.5MG 3 ML NEBU. NEB ONE (22:15)
--- NOTE | 2018-04-17 23:50 | RAD ---
Examination: CT HEAD WO CONTRAST History: dizziness Comparison/Correlation: None Findings: Axial images of the head were obtained without contrast. Ventricles are normal size. No intracranial hemorrhage, midline shift, or mass effect. Mild atrophy present. Bony structures are unremarkable. Globes and optic nerves are unremarkable asymmetry of mastoid air cells is noted. Impression: Atrophy. No intracranial hemorrhage. Electronically signed by: Randell Alvarado MD (04/17/2018 11:47 PM) [facility]
--- NOTE | 2018-04-17 23:57 | RAD ---
Examination: CT SOFT TISSUE NECK WO CONTRST, CT CHEST WO CONTRAST History: DIFFICULTY BREATHING; GLOBUS SENSATION Comparison/Correlation: None Findings: Axial images of the neck and chest were obtained without contrast. Sagittal and coronal reformatted images were provided. Imaging was performed from the mid orbital level to the upper abdominal level. Parotid and submandibular glands are normal. Pharynx is symmetric. Dental amalgam limits evaluation due to streak artifact. Soft tissues of the neck are unremarkable. No enlarged cervical lymph nodes. True and false cords are symmetric. Atlantoaxial joint degenerative narrowing is notable. Severe C4-C7 degenerative space narrowing is present. Spurring along the posterior margins of C4-C6 noted with mild spinal canal narrowing. Neural foraminal narrowing at these levels bilaterally is severe with bony encroachment especially on the left. Significant calcification of the distal left main and proximal left anterior segment coronary artery. No enlarged thoracic lymph nodes. Right pericardiac fat calcified granuloma is present. No pleural or pericardial effusion. Old right rib fractures are present. Minimal lingular atelectasis is present. Thoracic aortic morphology is grossly unremarkable. Mild diffuse emphysematous involvement of the lung ramierz noted. Degenerative disc space narrowing of the mid to lower thoracic spine level is identified. Impression: Severe degenerative changes of the cervical spine from C4 to C7. Neural foraminal narrowing. Soft tissues of the neck are unremarkable. No infiltrates. Emphysema. Electronically signed by: Randell Alvarado MD (04/17/2018 11:54 PM) [facility]
[2018-04-18] VITALS (7 sets, daily range): BP systolic 97–137; BP diastolic 54–68
--- NOTE | 2018-04-18 00:15 | PHYS DOC ---
Past Medical History Past Medical History: Anxiety, COPD, Depression, High Cholesterol Additional Past Medical Histor: seasonal allergies, T4-5 compression, restless leg, Meningioma T4-5 Past Surgical History: Hysterectomy Additional Past Surgical Histo: r)carpal tunnel ulner,trigger finger r),r)ight shoulder FX,rib fx,back Alcohol Use: None Drug Use: None Adult General Chief Complaint Chief Complaint: SHORTNESS OF BREATH HPI HPI Patient is a 72 year old female who presents with dyspnea. Patient states she has had dyspnea over the last week. She does have a known history of COPD. She has been treated by her primary care physician who placed her on Levaquin and prednisone. Her symptoms did not improve. She was then evaluated in this emergency department a couple of days ago and again thought to have COPD. She was discharged home. She continues to be on prednisone and Levaquin. During that visit, there was no acute pneumonia or other findings. Tonight, she presents to the ER continuing to complain of dyspnea. She has the sensation that there is something in her lungs that she is unable to cough up. This is causing her anxiety. No fever or chills. She denies chest pain. She also complains of some dizziness and lightheadedness and blurry vision over the same time. This is primarily associated with position changes. She denies vertiginous symptoms. She denies prior history of similar symptoms. No headaches. Review of Systems Review of Systems Constitutional: Denies fever Eyes: Denies change in visual acuity HENT: Denies nasal congestion or sore throat Respiratory: as documented above Cardiovascular: No additional information GI: Denies abdominal pain : Denies dysuria Musculoskeletal: Denies back pain Integument: Denies rash or skin lesions Neurologic: Denies headache or focal neuro complaints Endocrine: Denies polyuria or polydipsia All other systems were reviewed and found to be within normal limits, except as documented in this note. Current Medications Current Medications Current Medications Medications (Trade) Dose Ordered Sig/Deja Start Time Stop Time Status Last Admin Dose Admin Albuterol/ Ipratropium (Duoneb) 3 ml 1X ONCE 04/17/18 22:15 04/17/18 22:16 DC 04/17/18 22:13 3 ML Lorazepam (Ativan) 1 mg 1X ONCE 04/17/18 23:00 04/17/18 23:01 DC 04/17/18 23:04 1 MG Allergies Allergies Allergies Coded Allergies Type Severity Reaction Last Updated Verified adhesive tape Allergy Intermediate 10/25/16 Yes nickel Allergy Intermediate 10/25/16 Yes Physical Exam Physical Exam Constitutional: Well developed, well nourished, no acute distress, non-toxic appearance HENT: Normocephalic, atraumatic, bilateral external ears normal, oropharynx moist Eyes: PERRLA, EOMI, conjunctiva normal Neck: Normal range of motion, no tenderness, supple Cardiovascular:Heart rate regular rhythm, no murmur Lungs & Thorax: Bilateral breath sounds clear to auscultation, mild increased work of breathing but no adventitious sounds heard and good air mvt in all ramirez Abdomen: Bowel sounds normal, soft, NTTP Skin: Warm, dry, no erythema Extremities: No edema Neurologic: Alert and oriented X 3 Psychologic: Affect normal Current Patient Data Vital Signs Vital Signs Date Time Temp Pulse Resp B/P (MAP) Pulse Ox O2 Delivery O2 Flow Rate FiO2 04/18/18 00:02 71 116/65 (82) Room Air 04/17/18 23:32 25 94 04/17/18 20:40 98.1 98.1 Lab Values Laboratory Tests Test 04/17/18 21:20 04/17/18 21:41 White Blood Count 14.4 x10^3/uL (4.0-11.0) H Red Blood Count 4.81 x10^6/uL (3.50-5.40) Hemoglobin 15.2 g/dL (12.0-15.5) Hematocrit 44.2 % (36.0-47.0) Mean Corpuscular Volume 92 fL (79-100) Mean Corpuscular Hemoglobin 32 pg (25-35) Mean Corpuscular Hemoglobin Concent 35 g/dL (31-37) Red Cell Distribution Width 13.6 % (11.5-14.5) Platelet Count 309 x10^3/uL (140-400) Neutrophils (%) (Auto) 86 % (31-73) H Lymphocytes (%) (Auto) 11 % (24-48) L Monocytes (%) (Auto) 2 % (0-9) Eosinophils (%) (Auto) 0 % (0-3) Basophils (%) (Auto) 0 % (0-3) Neutrophils # (Auto) 12.4 x10^3uL (1.8-7.7) H Lymphocytes # (Auto) 1.6 x10^3/uL (1.0-4.8) Monocytes # (Auto) 0.4 x10^3/uL (0.0-1.1) Eosinophils # (Auto) 0.0 x10^3/uL (0.0-0.7) Basophils # (Auto) 0.1 x10^3/uL (0.0-0.2) Segmented Neutrophils % 90 % (35-66) H Lymphocytes % 7 % (24-48) L Monocytes % 2 % (0-10) Eosinophils % 1 % (0-5) Platelet Estimate Adequate (ADEQUATE) D-Dimer (Jessica) 1.08 ug/mlFEU (0.00-0.50) H Sodium Level 140 mmol/L (136-145) Potassium Level 4.1 mmol/L (3.5-5.1) Chloride Level 104 mmol/L (98-107) Carbon Dioxide Level 24 mmol/L (21-32) Anion Gap 12 (6-14) Blood Urea Nitrogen 32 mg/dL (7-20) H Creatinine 1.3 mg/dL (0.6-1.0) H Estimated GFR (Cockcroft-Gault) 40.5 Glucose Level 158 mg/dL (70-99) H Calcium Level 9.1 mg/dL (8.5-10.1) Troponin I Quantitative < 0.017 ng/mL (0.000-0.055) MB-Ymb-W-Type Natriuretic Peptide 48 pg/mL (0-124) Laboratory Tests 04/17/18 21:20 Laboratory Tests 04/17/18 21:41 EKG EKG No STEMI Interpretation Time: 00:25 Radiology/Procedures Radiology/Procedures History: DIFFICULTY BREATHING; GLOBUS SENSATION Comparison/Correlation: None Findings: Axial images of the neck and chest were obtained without contrast. Sagittal and coronal reformatted images were provided. Imaging was performed from the mid orbital level to the upper abdominal level. Parotid and submandibular glands are normal. Pharynx is symmetric. Dental amalgam limits evaluation due to streak artifact. Soft tissues of the neck are unremarkable. No enlarged cervical lymph nodes. True and false cords are symmetric. Atlantoaxial joint degenerative narrowing is notable. Severe C4-C7 degenerative space narrowing is present. Spurring along the posterior margins of C4-C6 noted with mild spinal canal narrowing. Neural foraminal narrowing at these levels bilaterally is severe with bony encroachment especially on the left. Significant calcification of the distal left main and proximal left anterior segment coronary artery. No enlarged thoracic lymph nodes. Right pericardiac fat calcified granuloma is present. No pleural or pericardial effusion. Old right rib fractures are present. Minimal lingular atelectasis is present. Thoracic aortic morphology is grossly unremarkable. Mild diffuse emphysematous involvement of the lung ramirez noted. Degenerative disc space narrowing of the mid to lower thoracic spine level is identified. Impression: Severe degenerative changes of the cervical spine from C4 to C7. Neural foraminal narrowing. Soft tissues of the neck are unremarkable. No infiltrates. Emphysema. CT head: negative. Course & Med Decision Making Course & Med Decision Making Pertinent Labs and Imaging studies reviewed. (See chart for details) Patient was evaluated in the ER for dyspnea. She had presented to care 3 times in the last week for the same symptoms so decision was made to admit this patient. In the ER this evening, her workup did not reveal an acute cause for her symptoms. She did complain of some obstructive type feeling causing her some anxiety and difficulty breathing. Because of this, CT scan of the neck and chest were performed but there were no acute findings. The patient also had some dizziness with blurry vision bilaterally over the last week. Non-con CT scan of the head was completed and was negative. Her BNP was not elevated. Her imaging did not reveal acute findings in the lung ramirez. On arrival, the patient was tachypnea but did not have a prolonged expiratory phase and did not have wheezes so her presentation really didn't seem like COPD exacerbation based on physical exam. Her creatinine was noted to be elevated mildly at 1.3. She was given some IV fluids after BNP was returned normal. The patient was given some Ativan in the emergency department actually did improve her symptoms. Consideration is given for pulmonary embolus although she has no risk factors. The patient's d-dimer was very mildly elevated but lower when compared to two months earlier when she had a negative CTA chest. At that time, her dimer was over 2. CT angiography was not repeated this evening as the patient's creatinine clearance was too low and she could not have contrast. Secondly, there is low suspicion that PE is a cause for her symptoms since she has no chest pain, no tachycardia, and her dimer is actually lower when compared to most recent results. V/Q scan is ordered to be done routinely in the morning but no tx is initiated. The cause for her dyspnea is unclear. Consult is requested for Pulmonology to see the patient. Dragon Disclaimer Dragon Disclaimer This electronic medical record was generated, in whole or in part, using a voice recognition dictation system. Departure Departure Referrals: JAYME PROCTOR MD (PCP) JUAN MANUEL FERNÁNDEZ DO Apr 18, 2018 00:15
[2018-04-18] MEDS ORDERED: ACETAMINOPHEN 325 MG TABLET. PO PRN (00:30)
[2018-04-18] MEDS ORDERED: fentaNYL PF VIAL 100 MCG/2 ML VIAL IV PRN (00:30)
[2018-04-18] MEDS ORDERED: ONDANSETRON PF 4 MG/2 ML VIAL. IV PRN (00:30)
--- NOTE | 2018-04-18 01:11 | EKG ---
[facility] [address] [place] [address] Test Date: 2018-04-18 Test Time: 00:23:04 Pat Name: JOLENE SHARMA Department: Room: 552 1 Gender: F Slot Machine Key Person: : 1945 Requested By: JUAN MANUEL FERNÁNDEZ Order Number: [id number] Reading MD: Rene Little Measurements Intervals [place] Rate: 72 P: 53 [place]: 146 QRS: 25 QRSD: 84 T: 11 QT: 372 QTc: 409 Interpretive Statements SINUS RHYTHM INCOMPLETE RIGHT BUNDLE BRANCH BLOCK T ABNORMALITY IN ANTERIOR LEADS ABNORMAL ECG RI6.01 Compared to ECG 02/05/2018 07:25:10 Incomplete right bundle-branch block now present T-wave abnormality now present Electronically Signed On 04-22-2018 12:41:00 VOICE ENGINEER by Rene Little
[2018-04-18] MEDS ORDERED: IV NORMAL SALINE 500ML BAG 500 ML IV ONE (01:45)
[2018-04-18] MEDS ORDERED: ALPRAZolam 0.5 MG TABLET PO PRN (01:45)
[2018-04-18] MEDS: IPRATRPIUM/ALBUTEROL 0.5/2.5MG 3 ML NEBU. NEB SCH ×4 (07:37→19:50)
--- NOTE | 2018-04-18 08:25 | EKG ---
[facility] [address] [place] [address] Test Date: 2018-04-18 Test Time: 07:44:31 Pat Name: JOLENE SHARMA Department: Room: 552 1 Gender: F Hydraulics Engineer: LYNETTE : 1945 Requested By: JUAN MANUEL FERNÁNDEZ Order Number: [id number] Reading MD: Rene Little Measurements Intervals [place] Rate: 70 P: 59 [place]: 160 QRS: 18 QRSD: 86 T: 13 QT: 396 QTc: 430 Interpretive Statements SINUS RHYTHM INCOMPLETE RIGHT BUNDLE BRANCH BLOCK NONSPECIFIC ST-T WAVE CHANGES. ABNORMAL ECG RI6.01 Compared to ECG 02/05/2018 07:25:10 Incomplete right bundle-branch block now present T-wave abnormality now present Electronically Signed On 04-22-2018 12:49:36 DRAFTING SUPERVISOR by Rene Little
[2018-04-18] MEDS ORDERED: C.DIFF MED SCREEN BY RX. MC ONE (09:00)
--- NOTE | 2018-04-18 10:19 | PDOC1 ---
History and Physical Date of Admission Date of Admission DATE: 04/18/18 TIME: 10:18 Identification/Chief Complaint Chief Complaint CC PRESENTED TO ER known history of COPD. She has been treated by her primary care physician who placed her on Levaquin and prednisone. did not improve. evaluated in this emergency department a couple of days ago and again thought to have COPD. discharged home. She continues to be on prednisone and Levaquin. During that visit, there was no acute pneumonia but was wheezing she presented to the ER continuing to complain of dyspnea. She has the sensation that there is something in her lungs that she is unable to cough up. This is causing her anxiety. No fever or chills. She denies chest pain. Past Medical History Past Medical History Past Medical History Past Medical History: Anxiety, COPD, Depression, High Cholesterol Additional Past Medical Histor: seasonal allergies, T4-5 compression, restless leg, Meningioma T4-5 Past Surgical History: Hysterectomy Additional Past Surgical Histo: r)carpal tunnel ulner,trigger finger r),r)ight shoulder FX,rib fx,back Alcohol Use: None Drug Use: None family hx obesity Cardiovascular: HTN, Valve insufficiency, Other Pulmonary: Bronchitis, COPD, Other CENTRAL NERVOUS SYSTEM: Other GI: GERD Heme/Onc: No pertinent hx Hepatobiliary: No pertinent hx Psych: Anxiety, Depression Musculoskeletal: Osteoarthritis, Other Infectious disease: No pertinent hx Renal/: Urinary Incontinence Endocrine: No pertinent hx Dermatology: No pertinent hx Past Surgical History Past Surgical History: Hysterectomy, Other Family History Family History: Hypertension Social History Smoke: <1 pack per day ALCOHOL: none Drugs: None Current Problem List Problem List Problems Medical Problems: (1) Dyspnea Status: Acute Current Medications Current Medications Current Medications Lorazepam (Ativan) 0.5 mg 1X ONCE IV Last administered on 04/17/18at 21:29; Start 04/17/18 at 21:00; Stop 04/17/18 at 21:02; Status DC Albuterol/ Ipratropium (Duoneb) 3 ml 1X ONCE NEB Last administered on at 22:13; Start 04/17/18 at 22:15; Stop 04/17/18 at 22:16; Status DC Lorazepam (Ativan) 1 mg 1X ONCE IV Last administered on 04/17/18at 23:04; Start 04/17/18 at 23:00; Stop 04/17/18 at 23:01; Status DC Ondansetron HCl (Zofran) 4 mg PRN Q8HRS PRN IV NAUSEA/VOMITING; Start 04/18/18 at 00:30; Stop 04/19/18 at 00:29 Fentanyl Citrate (Fentanyl 2ml Vial) 50 mcg PRN Q2HR PRN IV PAIN Last administered on 04/18/18at 02:07; Start 04/18/18 at 00:30; Stop 04/19/18 at 00:29 Acetaminophen (Tylenol) 650 mg PRN Q4HRS PRN PO FEVER; Start 04/18/18 at 00:30 ; Stop 04/19/18 at 00:29 Albuterol/ Ipratropium (Duoneb) 3 ml RTQID NEB Last administered on 04/18/18at 07:37; Start 04/18/18 at 08:00; Stop 04/19/18 at 07:59 Alprazolam (Xanax) 0.5 mg PRN Q8HRS PRN PO ANXIETY / AGITATION; Start 04/18/18 at 01:45 Sodium Chloride 500 ml @ 500 mls/hr 1X ONCE IV Last administered on at 02:06; Start 04/18/18 at 01:45; Stop 04/18/18 at 02:44; Status DC Pharmacy Consult (C.diff Med Screen By Rx) 1 each 1X ONCE [facility] ; Start 04/18/18 at 09:00; Stop 04/18/18 at 09:01; Status DC Piperacillin Sod/ Tazobactam Sod (Zosyn Per Pharmacy) 1 each PRN DAILY PRN [facility] SEE COMMENTS; Start 04/18/18 at 11:00 Budesonide (Pulmicort) 0.5 mg RTBID NEB ; Start 04/18/18 at 11:00; Status UNV Guaifenesin (Mucinex) 600 mg BID PO ; Start 04/18/18 at 21:00; Status UNV Active Scripts Active Prednisone 20 Mg Tablet 1 Tab PO DAILY Morphine Sulfate Er (Morphine Sulfate) 15 Mg Tablet.er 15 Mg PO BID Hydrocodone-Apap 5-325 (Hydrocodone Bit/Acetaminophen) 1 Each Tablet 1 Tab PO PRN Q6HRS PRN Bisacodyl 5 Mg Tablet.dr 10 Mg PO PRN DAILY PRN Reported Detrol La (Tolterodine Tartrate) 2 Mg Cap.er.24h 1 Cap PO DAILY Proair Hfa Inhaler (Albuterol Sulfate) 8.5 Gm Hfa.aer.ad 1 Puff INH PRN Q6HRS PRN Ropinirole Hcl 1 Mg Tablet 1 Mg PO HS Xanax (Alprazolam) 0.5 Mg Tablet 1 Tab PO HS Vesicare (Solifenacin Succinate) 10 Mg Tablet 10 Mg PO DAILY Aspirin 81 Mg Tab.chew 81 Mg PO DAILY Chantix (Varenicline Tartrate) 1 Mg Tablet 1 Mg PO BID Ranitidine Hcl 150 Mg Capsule 150 Mg PO DAILY Zyrtec (Cetirizine Hcl) 10 Mg Tablet 10 Mg PO DAILY Lexapro (Escitalopram Oxalate) 20 Mg Tablet 20 Mg PO DAILY Mucinex (Guaifenesin) 1,200 Mg Tbmp.12hr 1,200 Mg PO DAILY Allergies Allergies: Coded Allergies: adhesive tape (Verified Allergy, Intermediate, 10/25/16) nickel (Verified Allergy, Intermediate, 10/25/16) ROS Review of System Review of Systems Constitutional: Denies fever Eyes: Denies change in visual acuity HENT: Denies nasal congestion or sore throat Respiratory: as documented above, wheezing Cardiovascular: No additional information GI: Denies abdominal pain : Denies dysuria Musculoskeletal: Denies back pain Integument: Denies rash or skin lesions Neurologic: Denies headache or focal neuro complaints Endocrine: Denies polyuria or polydipsia 14 pt systems were reviewed and found to be within normal limits, except as documented Current Medications Respiratory: YES: Shortness of breath Musculoskeletal: Yes Joint Stiffness Physical Exam Physical Exam Physical Exam Constitutional: Well developed, well nourished, no acute distress, non-toxic appearance HENT: Normocephalic, atraumatic, bilateral external ears normal, oropharynx moist Eyes: PERRLA, EOMI, conjunctiva normal Neck: Normal range of motion, no tenderness, supple Cardiovascular:Heart rate regular rhythm, no murmur Lungs & Thorax: Bilateral mild exp wheezing mild increased work of breathing Abdomen: Bowel sounds normal, soft, NTTP Skin: Warm, dry, no erythema Extremities: No edema Neurologic: Alert and oriented X 3 Psychologic: Affect normal General: Alert, Oriented X3, Cooperative, No acute distress HEENT: EOMI, Mucous membr. moist/pink Heart: S1S2 Breasts: Not examined Abdomen: Soft PELVIC: Examination not indicated Extremities: No cyanosis Neuro: Normal speech, Cranial nerves 3-12 NL Psych/Mental Status: Mental status NL Vitals Vitals Vital Signs Date Time Temp Pulse Resp B/P (MAP) Pulse Ox O2 Delivery O2 Flow Rate FiO2 04/18/18 07:39 94 Room Air 04/18/18 07:00 97.9 71 20 97/54 (68) 97.9 Labs Labs Laboratory Tests Test 04/17/18 21:20 04/17/18 21:41 04/18/18 05:15 White Blood Count 14.4 x10^3/uL (4.0-11.0) Red Blood Count 4.81 x10^6/uL (3.50-5.40) Hemoglobin 15.2 g/dL (12.0-15.5) Hematocrit 44.2 % (36.0-47.0) Mean Corpuscular Volume 92 fL (79-100) Mean Corpuscular Hemoglobin 32 pg (25-35) Mean Corpuscular Hemoglobin Concent 35 g/dL (31-37) Red Cell Distribution Width 13.6 % (11.5-14.5) Platelet Count 309 x10^3/uL (140-400) Neutrophils (%) (Auto) 86 % (31-73) Lymphocytes (%) (Auto) 11 % (24-48) Monocytes (%) (Auto) 2 % (0-9) Eosinophils (%) (Auto) 0 % (0-3) Basophils (%) (Auto) 0 % (0-3) Neutrophils # (Auto) 12.4 x10^3uL (1.8-7.7) Lymphocytes # (Auto) 1.6 x10^3/uL (1.0-4.8) Monocytes # (Auto) 0.4 x10^3/uL (0.0-1.1) Eosinophils # (Auto) 0.0 x10^3/uL (0.0-0.7) Basophils # (Auto) 0.1 x10^3/uL (0.0-0.2) Segmented Neutrophils % 90 % (35-66) Lymphocytes % 7 % (24-48) Monocytes % 2 % (0-10) Eosinophils % 1 % (0-5) Platelet Estimate Adequate (ADEQUATE) D-Dimer (Jessica) 1.08 ug/mlFEU (0.00-0.50) Sodium Level 140 mmol/L (136-145) Potassium Level 4.1 mmol/L (3.5-5.1) Chloride Level 104 mmol/L (98-107) Carbon Dioxide Level 24 mmol/L (21-32) Anion Gap 12 (6-14) Blood Urea Nitrogen 32 mg/dL (7-20) Creatinine 1.3 mg/dL (0.6-1.0) Estimated GFR (Cockcroft-Gault) 40.5 Glucose Level 158 mg/dL (70-99) Calcium Level 9.1 mg/dL (8.5-10.1) Troponin I Quantitative < 0.017 ng/mL (0.000-0.055) < 0.017 ng/mL (0.000-0.055) WP-Qus-L-Type Natriuretic Peptide 48 pg/mL (0-124) Laboratory Tests Test 04/17/18 21:20 04/17/18 21:41 04/18/18 05:15 White Blood Count 14.4 x10^3/uL (4.0-11.0) Red Blood Count 4.81 x10^6/uL (3.50-5.40) Hemoglobin 15.2 g/dL (12.0-15.5) Hematocrit 44.2 % (36.0-47.0) Mean Corpuscular Volume 92 fL (79-100) Mean Corpuscular Hemoglobin 32 pg (25-35) Mean Corpuscular Hemoglobin Concent 35 g/dL (31-37) Red Cell Distribution Width 13.6 % (11.5-14.5) Platelet Count 309 x10^3/uL (140-400) Neutrophils (%) (Auto) 86 % (31-73) Lymphocytes (%) (Auto) 11 % (24-48) Monocytes (%) (Auto) 2 % (0-9) Eosinophils (%) (Auto) 0 % (0-3) Basophils (%) (Auto) 0 % (0-3) Neutrophils # (Auto) 12.4 x10^3uL (1.8-7.7) Lymphocytes # (Auto) 1.6 x10^3/uL (1.0-4.8) Monocytes # (Auto) 0.4 x10^3/uL (0.0-1.1) Eosinophils # (Auto) 0.0 x10^3/uL (0.0-0.7) Basophils # (Auto) 0.1 x10^3/uL (0.0-0.2) Segmented Neutrophils % 90 % (35-66) Lymphocytes % 7 % (24-48) Monocytes % 2 % (0-10) Eosinophils % 1 % (0-5) Platelet Estimate Adequate (ADEQUATE) D-Dimer (Jessica) 1.08 ug/mlFEU (0.00-0.50) Sodium Level 140 mmol/L (136-145) Potassium Level 4.1 mmol/L (3.5-5.1) Chloride Level 104 mmol/L (98-107) Carbon Dioxide Level 24 mmol/L (21-32) Anion Gap 12 (6-14) Blood Urea Nitrogen 32 mg/dL (7-20) Creatinine 1.3 mg/dL (0.6-1.0) Estimated GFR (Cockcroft-Gault) 40.5 Glucose Level 158 mg/dL (70-99) Calcium Level 9.1 mg/dL (8.5-10.1) Troponin I Quantitative < 0.017 ng/mL (0.000-0.055) < 0.017 ng/mL (0.000-0.055) YB-Yrl-M-Type Natriuretic Peptide 48 pg/mL (0-124) VTE Prophylaxis Ordered VTE Prophylaxis Devices: Yes VTE Pharmacological Prophylaxi: Yes Assessment/Plan Assessment/Plan IMPRESSION: 1. acute exacerbation of chronic obstructive pulmonary disease and acute bronchitis. 2. Acute bronchitis 3. 40 pk yrs tobacco use 4. elevated D-dimer, obtain venous Dopplers of lower extremities. plan 1. educated patient regarding importance of tobacco cessation completely. This is her ongoing trigger contributing to recurrent admissions. 2. DuoNeb qid. 3. steroid by nebulizer. 4. avoid resp irritants 5. mucolytics. 6. iv Zosyn 7. sq lovenox dvt prophylaxis 8. po protonix MINISTERIO ARREGUIN MD Apr 18, 2018 10:19
--- NOTE | 2018-04-18 10:51 | CONS ---
DATE OF CONSULTATION: ATTENDING PHYSICIAN: Dr. Barrios. REASON FOR CONSULTATION: Dyspnea. HISTORY OF PRESENT ILLNESS: The patient is a 72-year-old female with known history of COPD. She smoked for about 40 years and is still smoking few cigarettes a day. This is her third visit to the hospital in a month. She was starting to have some shortness of breath and a cough which was nonproductive. She was seen by PCP, Dr. Mccall and was placed on oral Levaquin and steroids. She made an initial improvement, then started to not feel well. She states that she was also seen in the ER and was treated for bronchitis. However, symptoms did not improve, as a result she was hospitalized with shortness of breath, some occasional wheezing. She has a cough, but she feels like she is unable to bring up sputum. No headaches. No nausea, vomiting or diarrhea. No fever, no chills. No chest pains. No focal weakness. No skin rash. Imaging studies were performed including CT of the chest, which was without contrast. There was no evidence of any consolidation. There was minimal lingular atelectasis and no significant pleural effusion or CHF seen. She also had a CT angiogram in January and there was no evidence of pulmonary embolism. I have been asked to see her for further evaluation. PAST MEDICAL HISTORY: Significant for COPD, depression, dyslipidemia, anxiety, seasonal allergies, T4-T5 compression, restless legs and meningioma in T4-T5. PAST SURGICAL HISTORY: Hysterectomy and surgery for meningioma at T4-T5. Other surgeries as discussed in H and P. REVIEW OF SYSTEMS: Twelve-point system obtained. Pertinent positives discussed in my history of present illness, otherwise noncontributory. All systems that were negative were reviewed as well. ALLERGIES: NICKEL AND ADHESIVE TAPE. MEDICATIONS: Reviewed as listed in the MRAD including nebulizer. SOCIAL HISTORY: Smoker for 40 years, has not quit completely, down to few cigarettes a day, used to smoke a pack a day. PHYSICAL EXAMINATION: VITAL SIGNS: Reviewed. Blood pressure 97/54, pulse ox 94% on room air. NECK: Supple, no JVD. LUNGS: With diminished breath sounds with no crackles or wheezing. CARDIOVASCULAR: Regular rate and rhythm. ABDOMEN: Soft, nontender. EXTREMITIES: With no pitting edema. LABORATORY DATA: Reviewed. Sodium 140, potassium 4.1. BUN ____, creatinine 1.3. D-dimer 1.08. White cell count 14.4. IMPRESSION: 1. Dyspnea secondary to acute exacerbation of chronic obstructive pulmonary disease and acute bronchitis. 2. Acute bronchitis with no definite consolidation seen on the CT chest. 3. 40 years of tobacco use with ongoing tobaccoism. 4. Abnormal D-dimer, which can be nonspecific, but we will obtain venous Dopplers of lower extremities. RECOMMENDATIONS: 1. Discussed with the patient regarding importance of tobacco cessation completely. This is her ongoing trigger contributing to recurrent admissions. 2. Continue DuoNeb. 3. Add steroid and nebulizer. 4. I do not see a need for any systemic steroids. 5. Add mucolytics. 6. Add Zosyn since she has failed oral Levaquin. 7. Venous Dopplers of lower extremities. 8. Discussed with entire family including all the sisters and we will follow along with you. PFTs as an outpatient. CLAIR STEPHENS MD DR: JERRI/hermelindo JOB#: [id number] / [id number] LESA
[2018-04-18] MEDS ORDERED: PIP/TAZO PER PHARMACY MC PRN (11:00)
[2018-04-18] MEDS: BUDESONIDE 0.5 MG/2 ML NEBU. NEB SCH ×2 (11:00→19:50)
[2018-04-18] MEDS: PIPERACILLIN/TAZOBACTAM 3.375 GM in IV NORMAL SALINE 50ML 50 ML IV SCH ×3 (11:00→23:33)
--- NOTE | 2018-04-18 14:27 | EKG ---
[facility] [address] [place] [address] Test Date: 2018-04-18 Test Time: 13:24:52 Pat Name: JOLENE SHARMA Department: Room: 552 1 Gender: F Mail Carriers Supervisor: GREG : 1945 Requested By: JUAN MANUEL FERNÁNDEZ Order Number: [id number] Reading MD: Rene Little Measurements Intervals [place] Rate: 82 P: 58 [place]: 144 QRS: 22 QRSD: 82 T: 27 QT: 362 QTc: 426 Interpretive Statements SINUS RHYTHM INCOMPLETE RIGHT BUNDLE BRANCH BLOCK T ABNORMALITY IN ANTEROSEPTAL LEADS ABNORMAL ECG RI6.01 Compared to ECG 04/15/2018 13:05:52 Incomplete right bundle-branch block now present T-wave abnormality now present Electronically Signed On 04-22-2018 12:55:09 SITE SAFETY REPRESENTATIVE by Rene Little
[2018-04-18] MEDS ORDERED: ALBUTEROL SULFATE 2.5 MG/3 ML NEBU. NEB PRN (14:45)
[2018-04-18] MEDS ORDERED: BISACODYL 5 MG TABLET.DR. PO PRN (14:45)
[2018-04-18] MEDS: OXYBUTYNIN CHLORIDE 5 MG TABLET PO SCH ×2 (15:30→21:09)
[2018-04-18] MEDS: FAMOTIDINE 20 MG TABLET. PO SCH (15:42)
[2018-04-18] MEDS: CITALOPRAM 20 MG TABLET. PO SCH (15:42)
[2018-04-18] MEDS: ASPIRIN CHEWABLE 81 MG TABLET. PO SCH (15:42)
[2018-04-18] MEDS: CETIRIZINE HCL 10 MG TABLET. PO SCH (15:42)
--- NOTE | 2018-04-18 16:55 | RAD ---
Bilateral lower extremity venous duplex study 04/18/2018 2:06 PM Clinical History: Positive d-dimer. Lower extremity edema Comparison: None Technique: Using a combination of real time ultrasound imaging and color-flow and pulse Doppler imaging techniques along with graded compression and augmentation, duplex evaluation of the deep venous system of the both lower extremities was performed. Multiple images were obtained. Findings: There is no sonographic evidence of deep venous thrombosis involving the visualized deep venous structures of either lower extremity. Impression: No evidence of deep venous thrombosis involving either lower extremity Electronically signed by: Sherwin Al MD (04/18/2018 4:52 PM) [id number]
[2018-04-18] MEDS: ENOXAPARIN 40 MG/0.4 ML SYRINGE. SQ SCH (18:03)
[2018-04-18] MEDS ORDERED: ALPRAZolam 0.5 MG TABLET PO SCH (21:00)
[2018-04-18] MEDS ORDERED: rOPINIRole 1 MG TABLET. PO SCH (21:00)
[2018-04-18] MEDS: VARENICLINE 0.5 MG TABLET. PO SCH (21:08)
[2018-04-18] MEDS: LACTOBACILLUS RHAMNOSUS GG 1 CAPSULE. PO SCH (21:08)
[2018-04-18] MEDS: MORPHINE ER 15 MG TABLET.ER PO SCH (21:09)
[2018-04-19] MEDS ORDERED: MORPHINE SULFATE 2 MG/ML VIAL. IV PRN (01:45)
[2018-04-19] MEDS ORDERED: LIDO:MAALOX 1:1 20 ML SINGLE DOSE. PO PRN (01:45)
[2018-04-19] MEDS ORDERED: ONDANSETRON PF 4 MG/2 ML VIAL. IV PRN (01:45)
--- NOTE | 2018-04-19 02:24 | EKG ---
[facility] [address] [place] [address] Test Date: 2018-04-19 Test Time: 02:18:55 Pat Name: JOLENE SHARMA Department: Room: 552 1 Gender: F Mortuary Technician: NATALIE : 1945 Requested By: GRUPO PENA Order Number: [id number] Reading MD: Yasmani Chairez MD Measurements Intervals [place] Rate: 78 P: 39 [place]: 160 QRS: 11 QRSD: 84 T: 8 QT: 392 QTc: 451 Interpretive Statements SINUS RHYTHM Electronically Signed On 04-22-2018 13:52:49 MEDICAL RECORDS SUPERVISOR by Yasmani Chairez MD
[2018-04-19 02:30] VITALS: BP 148/70
[2018-04-19] MEDS ORDERED: NITROGLYCERIN SUBLINGUAL 0.4 MG BOTTLE OF 25. SL PRN (02:30)
[2018-04-19] MEDS ORDERED: diphenhydrAMINE 50 MG/ML VIAL IVP PRN (03:00)
[2018-04-19] MEDS ORDERED: PROCHLORPERAZINE 10 MG/2 ML VIAL. IV PRN (03:00)
[2018-04-19 03:28] LABS: BASO # 0.1 x10^3/uL (0.0-0.2); BASO % 1 % (0-3); EOS # 0.1 x10^3/uL (0.0-0.7); EOS % 1 % (0-3); HEMATOCRIT 41.6 % (36.0-47.0); HEMOGLOBIN 14.2 g/dL (12.0-15.5); LYMPH # 4.2 x10^3/uL (1.0-4.8); LYMPH % 30 % (24-48); MEAN CORPUSCULAR HEMOGLOBIN 32 pg (25-35); MEAN CORPUSCULAR HGB CONC 34 g/dL (31-37); MEAN CORPUSCULAR VOLUME 92 fL (79-100); MONO # 1.2 x10^3/uL (0.0-1.1); MONO % 9 % (0-9); NEUT # 8.3 x10^3uL (1.8-7.7); NEUT % 60 % (31-73); PLATELET COUNT 326 x10^3/uL (140-400); RED BLOOD COUNT 4.52 x10^6/uL (3.50-5.40); RED CELL DISTRIBUTION WIDTH 13.6 % (11.5-14.5); WHITE BLOOD COUNT 13.9 x10^3/uL (4.0-11.0)
[2018-04-19 03:56] LABS: CALCIUM 8.8 mg/dL (8.5-10.1); CREATININE 1.4 mg/dL (0.6-1.0); GFR 37.2; POTASSIUM 4.2 mmol/L (3.5-5.1)
[2018-04-19 04:19] LABS: CHOLESTEROL/HDL RATIO 2.9
[2018-04-19] MEDS: PIPERACILLIN/TAZOBACTAM 3.375 GM in IV NORMAL SALINE 50ML 50 ML IV SCH ×3 (06:03→17:44)
[2018-04-19 07:00] VITALS: BP 118/52
[2018-04-19] MEDS: BUDESONIDE 0.5 MG/2 ML NEBU. NEB SCH (07:32)
[2018-04-19] MEDS: ASPIRIN CHEWABLE 81 MG TABLET. PO SCH (08:06)
[2018-04-19] MEDS: FAMOTIDINE 20 MG TABLET. PO SCH (08:06)
[2018-04-19] MEDS: OXYBUTYNIN CHLORIDE 5 MG TABLET PO SCH ×2 (08:06→15:29)
[2018-04-19] MEDS: CETIRIZINE HCL 10 MG TABLET. PO SCH (08:06)
[2018-04-19] MEDS: LACTOBACILLUS RHAMNOSUS GG 1 CAPSULE. PO SCH (08:06)
[2018-04-19] MEDS: CITALOPRAM 20 MG TABLET. PO SCH (08:07)
[2018-04-19] MEDS: MORPHINE ER 15 MG TABLET.ER PO SCH (08:07)
[2018-04-19] MEDS ORDERED: NON FORMULARY ITEM (Tolterodine Tartrate (Detrol La) 1 CAP) PO SCH (09:00)
[2018-04-19] MEDS ORDERED: GUAIFENESIN 1200 MG PO SCH (09:00)
--- NOTE | 2018-04-19 09:33 | PDOC2 ---
GI CONSULT Reason For Consult: Globus, vomiting undigested food HPI: HPI: 72 y/o female admitted w/ COPD exacerbation. Awoke overnight (around 1:00 a.m. she says) with burning substernal and left mid/lower pain pain. Has nausea and vomiting of food. This morning pain has resolved but she's still belching and doesn't feel hungry, though denies nausea or recurrent vomiting. She also denies dysphagia, odynophagia, and globus. Has h/o GERD on Protonix and ranitidine Q a.m. Tried Carafate in the past, unhelpful. Uses Tums PRN. Typical GERD symptoms are "a fireball" in upper abdomen between 2:00 and 4:00 p.m. No abdominal pain. Typically no issues w/ n /v. No hematemesis, hematochezia, or melena. No diarrhea or constipation. No weight loss. Reports EGD sometimes last year @ [facility] which showed "erosions and inflammation." Says was advised to continue PPI. Last colonoscopy probably ~2 years ago w/ Dr. Alexis, reportedly normal. No GB, liver, or pancreas history. NSAID use in the past for pain prior to hysterectomy, none now (though takes ASA QD). PMH: PMH: HTN, COPD, PAD, LIS, anxiety, OA, GERD hysterectomy, thyroid biopsy, thoracic laminectomy and removal of meningioma, trigger finger release, right carpal tunnel and ulnar nerve surgery FH: Family History: Other (father - ulcer) Social History: Smoke: <1 pack per day ALCOHOL: rare Drugs: None ROS: GEN: Denies fevers, chills, sweats HEENT: Denies blurred vision, sore throat CV: Denies chest pain RESP: +SOA +wheeze +cough GI: Per HPI : Denies hematuria, dysuria ENDO: Denies weight changes NEURO: Denies confusion, dizziness MSK: Denies weakness, joint pain/swelling SKIN: Denies jaundice, pruritus Vitals: Vitals: Vital Signs Date Time Temp Pulse Resp B/P (MAP) Pulse Ox O2 Delivery O2 Flow Rate FiO2 04/19/18 08:07 20 97 Room Air 04/19/18 07:00 71 118/52 (74) 04/19/18 02:30 98.1 98.1 Labs: Labs: Laboratory Tests Test 04/18/18 11:50 04/18/18 18:00 04/19/18 02:45 Troponin I Quantitative < 0.017 ng/mL (0.000-0.055) < 0.017 ng/mL (0.000-0.055) < 0.017 ng/mL (0.000-0.055) White Blood Count 13.9 x10^3/uL (4.0-11.0) Red Blood Count 4.52 x10^6/uL (3.50-5.40) Hemoglobin 14.2 g/dL (12.0-15.5) Hematocrit 41.6 % (36.0-47.0) Mean Corpuscular Volume 92 fL (79-100) Mean Corpuscular Hemoglobin 32 pg (25-35) Mean Corpuscular Hemoglobin Concent 34 g/dL (31-37) Red Cell Distribution Width 13.6 % (11.5-14.5) Platelet Count 326 x10^3/uL (140-400) Neutrophils (%) (Auto) 60 % (31-73) Lymphocytes (%) (Auto) 30 % (24-48) Monocytes (%) (Auto) 9 % (0-9) Eosinophils (%) (Auto) 1 % (0-3) Basophils (%) (Auto) 1 % (0-3) Neutrophils # (Auto) 8.3 x10^3uL (1.8-7.7) Lymphocytes # (Auto) 4.2 x10^3/uL (1.0-4.8) Monocytes # (Auto) 1.2 x10^3/uL (0.0-1.1) Eosinophils # (Auto) 0.1 x10^3/uL (0.0-0.7) Basophils # (Auto) 0.1 x10^3/uL (0.0-0.2) Sodium Level 140 mmol/L (136-145) Potassium Level 4.2 mmol/L (3.5-5.1) Chloride Level 103 mmol/L (98-107) Carbon Dioxide Level 28 mmol/L (21-32) Anion Gap 9 (6-14) Blood Urea Nitrogen 39 mg/dL (7-20) Creatinine 1.4 mg/dL (0.6-1.0) Estimated GFR (Cockcroft-Gault) 37.2 Glucose Level 141 mg/dL (70-99) Calcium Level 8.8 mg/dL (8.5-10.1) Triglycerides Level 112 mg/dL (0-150) Cholesterol Level 157 mg/dL (0-200) LDL Cholesterol, Calculated 81 mg/dL (0-100) VLDL Cholesterol, Calculated 22 mg/dL (0-40) Non-HDL Cholesterol Calculated 103 mg/dL (0-129) HDL Cholesterol 54 mg/dL (40-60) Cholesterol/HDL Ratio 2.9 Allergies: Coded Allergies: adhesive tape (Verified Allergy, Intermediate, 10/25/16) nickel (Verified Allergy, Intermediate, 10/25/16) Medications: Current Medications Medications (Trade) Dose Ordered Sig/Deja Route PRN Reason Start Time Stop Time Status Last Admin Dose Admin Budesonide (Pulmicort) 0.5 mg RTBID NEB 04/18/18 11:00 04/19/18 07:32 Guaifenesin (Mucinex) 600 mg BID PO 04/18/18 11:00 04/19/18 08:06 Piperacillin Sod/ Tazobactam Sod 3.375 gm/Sodium Chloride 50 ml @ 100 mls/hr Q6HRS IV 04/18/18 11:00 04/19/18 06:03 Alprazolam (Xanax) 0.5 mg HS PO 04/18/18 21:00 04/18/18 21:09 Aspirin (Children'S Aspirin) 81 mg DAILY PO 04/18/18 15:30 04/19/18 08:06 Cetirizine HCl (ZyrTEC) 10 mg DAILY PO 04/18/18 15:30 04/19/18 08:06 Morphine Sulfate (Ms Contin) 15 mg BID PO 04/18/18 21:00 04/19/18 08:07 Citalopram Hydrobromide (CeleXA) 40 mg DAILY PO 04/18/18 15:30 04/19/18 08:07 Famotidine (Pepcid) 20 mg DAILY PO 04/18/18 15:30 04/19/18 08:06 Ropinirole HCl (Requip) 1 mg QHS PO 04/18/18 21:00 04/18/18 21:08 Oxybutynin Chloride (Ditropan) 5 mg [id number] PO 04/18/18 15:30 04/19/18 08:06 Varenicline (Chantix) 1 mg BID PO 04/18/18 21:00 04/18/18 21:08 Lactobacillus Rhamnosus (Culturelle) 1 cap BID PO 04/18/18 21:00 04/19/18 08:06 Enoxaparin Sodium (Lovenox 40mg Syringe) 40 mg Q24H SQ 04/18/18 17:45 04/18/18 18:03 Morphine Sulfate (Morphine Sulfate) 2 mg PRN Q3HRS PRN IV PAIN 04/19/18 01:45 04/19/18 02:14 Ondansetron HCl (Zofran) 4 mg PRN Q6HRS PRN IV NAUSEA/VOMITING 04/19/18 01:45 04/19/18 02:15 Multi-Ingredient Mouthwash/Gargle (Gi Cocktail) 20 ml PRN QID PRN PO CHEST PAIN 04/19/18 01:45 04/19/18 02:15 Prochlorperazine Edisylate (Compazine) 5 mg PRN Q6HRS PRN IV NAUSEA/VOMITING 04/19/18 03:00 04/19/18 03:13 Diphenhydramine HCl (Benadryl) 12.5 mg PRN Q6HRS PRN IVP ITCHING 04/19/18 03:00 04/19/18 03:13 Imaging: Imaging: Soft Tissue Neck and Chest CT Impression: Severe degenerative changes of the cervical spine from C4 to C7. Neural foraminal narrowing. Soft tissues of the neck are unremarkable. No infiltrates. Emphysema. Head CT Impression: Atrophy. No intracranial hemorrhage. LE US Impression: No evidence of deep venous thrombosis involving either lower extremity. PE: GEN: NAD - was asleep, snoring HEENT: Atraumatic, PERRL LUNGS: a bit diminished anteriorly, no wheezing HEART: RRR ABD: NABS, S/ND/NT EXTREMITY: No edema SKIN: No rashes, no jaundice NEURO/PSYCH: A & O 3 A/P: A/P: COPD exacerbation N/v, burning chest pain GERD CRC screen - UTD -- ?aerophagia w/ COPD issues on top of known GERD. Better this morning. Supportive care, monitor. Resume PPI. GI cocktail okay PRN. Will review records of past EGD from [facility]. JESUS FELDMAN Apr 19, 2018 09:33
[2018-04-19] MEDS ORDERED: PANTOPRAZOLE 40 MG TABLET.DR. PO SCH (10:00)
[2018-04-19] MEDS: VARENICLINE 0.5 MG TABLET. PO SCH (10:03)
[2018-04-19 11:00] VITALS: BP 121/68
--- NOTE | 2018-04-19 11:10 | PDOC ---
PULMONARY PROGRESS NOTES Subjective feels better Vitals Vital Signs Date Time Temp Pulse Resp B/P (MAP) Pulse Ox O2 Delivery O2 Flow Rate FiO2 04/19/18 08:07 20 97 Room Air 04/19/18 07:00 71 118/52 (74) 04/19/18 02:30 98.1 98.1 General: Alert, No acute distress Lungs: Clear Cardiovascular: S1 Abdomen: Soft Neuro Exam: Alert Extremities: No Edema Skin: Warm Labs Laboratory Tests Test 04/17/18 21:20 04/17/18 21:41 04/18/18 05:15 04/18/18 11:50 White Blood Count 14.4 x10^3/uL (4.0-11.0) Red Blood Count 4.81 x10^6/uL (3.50-5.40) Hemoglobin 15.2 g/dL (12.0-15.5) Hematocrit 44.2 % (36.0-47.0) Mean Corpuscular Volume 92 fL (79-100) Mean Corpuscular Hemoglobin 32 pg (25-35) Mean Corpuscular Hemoglobin Concent 35 g/dL (31-37) Red Cell Distribution Width 13.6 % (11.5-14.5) Platelet Count 309 x10^3/uL (140-400) Neutrophils (%) (Auto) 86 % (31-73) Lymphocytes (%) (Auto) 11 % (24-48) Monocytes (%) (Auto) 2 % (0-9) Eosinophils (%) (Auto) 0 % (0-3) Basophils (%) (Auto) 0 % (0-3) Neutrophils # (Auto) 12.4 x10^3uL (1.8-7.7) Lymphocytes # (Auto) 1.6 x10^3/uL (1.0-4.8) Monocytes # (Auto) 0.4 x10^3/uL (0.0-1.1) Eosinophils # (Auto) 0.0 x10^3/uL (0.0-0.7) Basophils # (Auto) 0.1 x10^3/uL (0.0-0.2) Segmented Neutrophils % 90 % (35-66) Lymphocytes % 7 % (24-48) Monocytes % 2 % (0-10) Eosinophils % 1 % (0-5) Platelet Estimate Adequate (ADEQUATE) D-Dimer (Jessica) 1.08 ug/mlFEU (0.00-0.50) Sodium Level 140 mmol/L (136-145) Potassium Level 4.1 mmol/L (3.5-5.1) Chloride Level 104 mmol/L (98-107) Carbon Dioxide Level 24 mmol/L (21-32) Anion Gap 12 (6-14) Blood Urea Nitrogen 32 mg/dL (7-20) Creatinine 1.3 mg/dL (0.6-1.0) Estimated GFR (Cockcroft-Gault) 40.5 Glucose Level 158 mg/dL (70-99) Calcium Level 9.1 mg/dL (8.5-10.1) Troponin I Quantitative < 0.017 ng/mL (0.000-0.055) < 0.017 ng/mL (0.000-0.055) < 0.017 ng/mL (0.000-0.055) KH-Hzb-X-Type Natriuretic Peptide 48 pg/mL (0-124) Test 04/18/18 18:00 04/19/18 02:45 Troponin I Quantitative < 0.017 ng/mL (0.000-0.055) < 0.017 ng/mL (0.000-0.055) White Blood Count 13.9 x10^3/uL (4.0-11.0) Red Blood Count 4.52 x10^6/uL (3.50-5.40) Hemoglobin 14.2 g/dL (12.0-15.5) Hematocrit 41.6 % (36.0-47.0) Mean Corpuscular Volume 92 fL (79-100) Mean Corpuscular Hemoglobin 32 pg (25-35) Mean Corpuscular Hemoglobin Concent 34 g/dL (31-37) Red Cell Distribution Width 13.6 % (11.5-14.5) Platelet Count 326 x10^3/uL (140-400) Neutrophils (%) (Auto) 60 % (31-73) Lymphocytes (%) (Auto) 30 % (24-48) Monocytes (%) (Auto) 9 % (0-9) Eosinophils (%) (Auto) 1 % (0-3) Basophils (%) (Auto) 1 % (0-3) Neutrophils # (Auto) 8.3 x10^3uL (1.8-7.7) Lymphocytes # (Auto) 4.2 x10^3/uL (1.0-4.8) Monocytes # (Auto) 1.2 x10^3/uL (0.0-1.1) Eosinophils # (Auto) 0.1 x10^3/uL (0.0-0.7) Basophils # (Auto) 0.1 x10^3/uL (0.0-0.2) Sodium Level 140 mmol/L (136-145) Potassium Level 4.2 mmol/L (3.5-5.1) Chloride Level 103 mmol/L (98-107) Carbon Dioxide Level 28 mmol/L (21-32) Anion Gap 9 (6-14) Blood Urea Nitrogen 39 mg/dL (7-20) Creatinine 1.4 mg/dL (0.6-1.0) Estimated GFR (Cockcroft-Gault) 37.2 Glucose Level 141 mg/dL (70-99) Calcium Level 8.8 mg/dL (8.5-10.1) Triglycerides Level 112 mg/dL (0-150) Cholesterol Level 157 mg/dL (0-200) LDL Cholesterol, Calculated 81 mg/dL (0-100) VLDL Cholesterol, Calculated 22 mg/dL (0-40) Non-HDL Cholesterol Calculated 103 mg/dL (0-129) HDL Cholesterol 54 mg/dL (40-60) Cholesterol/HDL Ratio 2.9 Laboratory Tests Test 04/18/18 11:50 04/18/18 18:00 04/19/18 02:45 Troponin I Quantitative < 0.017 ng/mL (0.000-0.055) < 0.017 ng/mL (0.000-0.055) < 0.017 ng/mL (0.000-0.055) White Blood Count 13.9 x10^3/uL (4.0-11.0) Red Blood Count 4.52 x10^6/uL (3.50-5.40) Hemoglobin 14.2 g/dL (12.0-15.5) Hematocrit 41.6 % (36.0-47.0) Mean Corpuscular Volume 92 fL (79-100) Mean Corpuscular Hemoglobin 32 pg (25-35) Mean Corpuscular Hemoglobin Concent 34 g/dL (31-37) Red Cell Distribution Width 13.6 % (11.5-14.5) Platelet Count 326 x10^3/uL (140-400) Neutrophils (%) (Auto) 60 % (31-73) Lymphocytes (%) (Auto) 30 % (24-48) Monocytes (%) (Auto) 9 % (0-9) Eosinophils (%) (Auto) 1 % (0-3) Basophils (%) (Auto) 1 % (0-3) Neutrophils # (Auto) 8.3 x10^3uL (1.8-7.7) Lymphocytes # (Auto) 4.2 x10^3/uL (1.0-4.8) Monocytes # (Auto) 1.2 x10^3/uL (0.0-1.1) Eosinophils # (Auto) 0.1 x10^3/uL (0.0-0.7) Basophils # (Auto) 0.1 x10^3/uL (0.0-0.2) Sodium Level 140 mmol/L (136-145) Potassium Level 4.2 mmol/L (3.5-5.1) Chloride Level 103 mmol/L (98-107) Carbon Dioxide Level 28 mmol/L (21-32) Anion Gap 9 (6-14) Blood Urea Nitrogen 39 mg/dL (7-20) Creatinine 1.4 mg/dL (0.6-1.0) Estimated GFR (Cockcroft-Gault) 37.2 Glucose Level 141 mg/dL (70-99) Calcium Level 8.8 mg/dL (8.5-10.1) Triglycerides Level 112 mg/dL (0-150) Cholesterol Level 157 mg/dL (0-200) LDL Cholesterol, Calculated 81 mg/dL (0-100) VLDL Cholesterol, Calculated 22 mg/dL (0-40) Non-HDL Cholesterol Calculated 103 mg/dL (0-129) HDL Cholesterol 54 mg/dL (40-60) Cholesterol/HDL Ratio 2.9 Medications Active Scripts Medications Dose Route/Sig Max Daily Dose Days Date Category Prednisone 20 Mg Tablet 1 Tab PO DAILY 04/15/18 Rx Detrol La (Tolterodine Tartrate) 2 Mg Cap.er.24h 1 Cap PO DAILY 04/23/17 Reported Morphine Sulfate Er (Morphine Sulfate) 15 Mg Tablet.er 15 Mg PO BID 10/29/16 Rx Hydrocodone-Apap 5-325 (Hydrocodone Bit/Acetaminophen) 1 Each Tablet 1 Tab PO PRN Q6HRS PRN 10/29/16 Rx Bisacodyl 5 Mg Tablet.dr 10 Mg PO PRN DAILY PRN 10/29/16 Rx Proair Hfa Inhaler (Albuterol Sulfate) 8.5 Gm Hfa.aer.ad 1 Puff INH PRN Q6HRS PRN 11/22/15 Reported Ropinirole Hcl 1 Mg Tablet 1 Mg PO HS 11/22/15 Reported Xanax (Alprazolam) 0.5 Mg Tablet 1 Tab PO HS 11/22/15 Reported Vesicare (Solifenacin Succinate) 10 Mg Tablet 10 Mg PO DAILY 11/22/15 Reported Aspirin 81 Mg Tab.chew 81 Mg PO DAILY 11/22/15 Reported Chantix (Varenicline Tartrate) 1 Mg Tablet 1 Mg PO BID 11/22/15 Reported Ranitidine Hcl 150 Mg Capsule 150 Mg PO DAILY 11/22/15 Reported Zyrtec (Cetirizine Hcl) 10 Mg Tablet 10 Mg PO DAILY 11/22/15 Reported Lexapro (Escitalopram Oxalate) 20 Mg Tablet 20 Mg PO DAILY 11/22/15 Reported Mucinex (Guaifenesin) 1,200 Mg Tbmp.12hr 1,200 Mg PO DAILY 11/22/15 Reported Impression . 1. Dyspnea secondary to acute exacerbation of chronic obstructive pulmonary disease and acute bronchitis. 2. Acute bronchitis with no definite consolidation seen on the CT chest. 3. 40 years of tobacco use with ongoing tobaccoism. 4. Abnormal D-dimer, which can be nonspecific, Neg venous Dopplers of lower extremities. Plan . 1. Discussed with the patient regarding importance of tobacco cessation completely. This is her ongoing trigger contributing to recurrent admissions. 2. Continue DuoNeb. 3. steroid and nebulizer. 4. I do not see a need for any systemic steroids. 5. mucolytics. 6. dc Zosyn and can change to PO Augmentin at dc 7. Venous Dopplers of lower extremities neg 8. PFTs as an outpatient. ok with dc home on PO abx CLAIR STEPHENS MD Apr 19, 2018 11:10
[2018-04-19] MEDS: IPRATRPIUM/ALBUTEROL 0.5/2.5MG 3 ML NEBU. NEB SCH (11:24)
--- NOTE | 2018-04-19 11:44 | PDOC ---
PROGRESS NOTES History of Present Illness History of Present Illness Assessment/Plan Assessment/Plan IMPRESSION: 1. acute exacerbation of chronic obstructive pulmonary disease and acute bronchitis. 2. Acute bronchitis 3. 40 pk yrs tobacco use 4. elevated D-dimer, obtain venous Dopplers of lower extremities.neg dvt plan 1. educated patient regarding importance of tobacco cessation completely. This is her ongoing trigger contributing to recurrent admissions. 2. DuoNeb qid. 3. steroid by nebulizer. 4. avoid resp irritants 5. mucolytics. no systemic steroids 6. home with po augmentin 7. sq lovenox dvt prophylaxis 8. po protonix Vitals Vitals Vital Signs Date Time Temp Pulse Resp B/P (MAP) Pulse Ox O2 Delivery O2 Flow Rate FiO2 04/19/18 11:26 95 Room Air 04/19/18 11:00 98.1 77 20 121/68 (85) 98.1 Physical Exam General: Alert, Oriented X3, Cooperative, No acute distress Heart: Regular rate Lungs: Clear Abdomen: Normal bowel sounds, Soft Extremities: No clubbing, No cyanosis Skin: No significant lesion Labs LABS Laboratory Tests Test 04/18/18 11:50 04/18/18 18:00 04/19/18 02:45 Troponin I Quantitative < 0.017 ng/mL (0.000-0.055) < 0.017 ng/mL (0.000-0.055) < 0.017 ng/mL (0.000-0.055) White Blood Count 13.9 x10^3/uL (4.0-11.0) Red Blood Count 4.52 x10^6/uL (3.50-5.40) Hemoglobin 14.2 g/dL (12.0-15.5) Hematocrit 41.6 % (36.0-47.0) Mean Corpuscular Volume 92 fL (79-100) Mean Corpuscular Hemoglobin 32 pg (25-35) Mean Corpuscular Hemoglobin Concent 34 g/dL (31-37) Red Cell Distribution Width 13.6 % (11.5-14.5) Platelet Count 326 x10^3/uL (140-400) Neutrophils (%) (Auto) 60 % (31-73) Lymphocytes (%) (Auto) 30 % (24-48) Monocytes (%) (Auto) 9 % (0-9) Eosinophils (%) (Auto) 1 % (0-3) Basophils (%) (Auto) 1 % (0-3) Neutrophils # (Auto) 8.3 x10^3uL (1.8-7.7) Lymphocytes # (Auto) 4.2 x10^3/uL (1.0-4.8) Monocytes # (Auto) 1.2 x10^3/uL (0.0-1.1) Eosinophils # (Auto) 0.1 x10^3/uL (0.0-0.7) Basophils # (Auto) 0.1 x10^3/uL (0.0-0.2) Sodium Level 140 mmol/L (136-145) Potassium Level 4.2 mmol/L (3.5-5.1) Chloride Level 103 mmol/L (98-107) Carbon Dioxide Level 28 mmol/L (21-32) Anion Gap 9 (6-14) Blood Urea Nitrogen 39 mg/dL (7-20) Creatinine 1.4 mg/dL (0.6-1.0) Estimated GFR (Cockcroft-Gault) 37.2 Glucose Level 141 mg/dL (70-99) Calcium Level 8.8 mg/dL (8.5-10.1) Triglycerides Level 112 mg/dL (0-150) Cholesterol Level 157 mg/dL (0-200) LDL Cholesterol, Calculated 81 mg/dL (0-100) VLDL Cholesterol, Calculated 22 mg/dL (0-40) Non-HDL Cholesterol Calculated 103 mg/dL (0-129) HDL Cholesterol 54 mg/dL (40-60) Cholesterol/HDL Ratio 2.9 Assessment and Plan Assessmemt and Plan Problems Medical Problems: (1) Dyspnea Status: Acute Comment Review of Relevant I have reviewed the following items selina (where applicable) has been applied. Labs Laboratory Tests Test 04/17/18 21:20 04/17/18 21:41 04/18/18 05:15 04/18/18 11:50 White Blood Count 14.4 x10^3/uL (4.0-11.0) Red Blood Count 4.81 x10^6/uL (3.50-5.40) Hemoglobin 15.2 g/dL (12.0-15.5) Hematocrit 44.2 % (36.0-47.0) Mean Corpuscular Volume 92 fL (79-100) Mean Corpuscular Hemoglobin 32 pg (25-35) Mean Corpuscular Hemoglobin Concent 35 g/dL (31-37) Red Cell Distribution Width 13.6 % (11.5-14.5) Platelet Count 309 x10^3/uL (140-400) Neutrophils (%) (Auto) 86 % (31-73) Lymphocytes (%) (Auto) 11 % (24-48) Monocytes (%) (Auto) 2 % (0-9) Eosinophils (%) (Auto) 0 % (0-3) Basophils (%) (Auto) 0 % (0-3) Neutrophils # (Auto) 12.4 x10^3uL (1.8-7.7) Lymphocytes # (Auto) 1.6 x10^3/uL (1.0-4.8) Monocytes # (Auto) 0.4 x10^3/uL (0.0-1.1) Eosinophils # (Auto) 0.0 x10^3/uL (0.0-0.7) Basophils # (Auto) 0.1 x10^3/uL (0.0-0.2) Segmented Neutrophils % 90 % (35-66) Lymphocytes % 7 % (24-48) Monocytes % 2 % (0-10) Eosinophils % 1 % (0-5) Platelet Estimate Adequate (ADEQUATE) D-Dimer (Jessica) 1.08 ug/mlFEU (0.00-0.50) Sodium Level 140 mmol/L (136-145) Potassium Level 4.1 mmol/L (3.5-5.1) Chloride Level 104 mmol/L (98-107) Carbon Dioxide Level 24 mmol/L (21-32) Anion Gap 12 (6-14) Blood Urea Nitrogen 32 mg/dL (7-20) Creatinine 1.3 mg/dL (0.6-1.0) Estimated GFR (Cockcroft-Gault) 40.5 Glucose Level 158 mg/dL (70-99) Calcium Level 9.1 mg/dL (8.5-10.1) Troponin I Quantitative < 0.017 ng/mL (0.000-0.055) < 0.017 ng/mL (0.000-0.055) < 0.017 ng/mL (0.000-0.055) KL-Rxs-Y-Type Natriuretic Peptide 48 pg/mL (0-124) Test 04/18/18 18:00 04/19/18 02:45 Troponin I Quantitative < 0.017 ng/mL (0.000-0.055) < 0.017 ng/mL (0.000-0.055) White Blood Count 13.9 x10^3/uL (4.0-11.0) Red Blood Count 4.52 x10^6/uL (3.50-5.40) Hemoglobin 14.2 g/dL (12.0-15.5) Hematocrit 41.6 % (36.0-47.0) Mean Corpuscular Volume 92 fL (79-100) Mean Corpuscular Hemoglobin 32 pg (25-35) Mean Corpuscular Hemoglobin Concent 34 g/dL (31-37) Red Cell Distribution Width 13.6 % (11.5-14.5) Platelet Count 326 x10^3/uL (140-400) Neutrophils (%) (Auto) 60 % (31-73) Lymphocytes (%) (Auto) 30 % (24-48) Monocytes (%) (Auto) 9 % (0-9) Eosinophils (%) (Auto) 1 % (0-3) Basophils (%) (Auto) 1 % (0-3) Neutrophils # (Auto) 8.3 x10^3uL (1.8-7.7) Lymphocytes # (Auto) 4.2 x10^3/uL (1.0-4.8) Monocytes # (Auto) 1.2 x10^3/uL (0.0-1.1) Eosinophils # (Auto) 0.1 x10^3/uL (0.0-0.7) Basophils # (Auto) 0.1 x10^3/uL (0.0-0.2) Sodium Level 140 mmol/L (136-145) Potassium Level 4.2 mmol/L (3.5-5.1) Chloride Level 103 mmol/L (98-107) Carbon Dioxide Level 28 mmol/L (21-32) Anion Gap 9 (6-14) Blood Urea Nitrogen 39 mg/dL (7-20) Creatinine 1.4 mg/dL (0.6-1.0) Estimated GFR (Cockcroft-Gault) 37.2 Glucose Level 141 mg/dL (70-99) Calcium Level 8.8 mg/dL (8.5-10.1) Triglycerides Level 112 mg/dL (0-150) Cholesterol Level 157 mg/dL (0-200) LDL Cholesterol, Calculated 81 mg/dL (0-100) VLDL Cholesterol, Calculated 22 mg/dL (0-40) Non-HDL Cholesterol Calculated 103 mg/dL (0-129) HDL Cholesterol 54 mg/dL (40-60) Cholesterol/HDL Ratio 2.9 Laboratory Tests Test 04/18/18 11:50 04/18/18 18:00 04/19/18 02:45 Troponin I Quantitative < 0.017 ng/mL (0.000-0.055) < 0.017 ng/mL (0.000-0.055) < 0.017 ng/mL (0.000-0.055) White Blood Count 13.9 x10^3/uL (4.0-11.0) Red Blood Count 4.52 x10^6/uL (3.50-5.40) Hemoglobin 14.2 g/dL (12.0-15.5) Hematocrit 41.6 % (36.0-47.0) Mean Corpuscular Volume 92 fL (79-100) Mean Corpuscular Hemoglobin 32 pg (25-35) Mean Corpuscular Hemoglobin Concent 34 g/dL (31-37) Red Cell Distribution Width 13.6 % (11.5-14.5) Platelet Count 326 x10^3/uL (140-400) Neutrophils (%) (Auto) 60 % (31-73) Lymphocytes (%) (Auto) 30 % (24-48) Monocytes (%) (Auto) 9 % (0-9) Eosinophils (%) (Auto) 1 % (0-3) Basophils (%) (Auto) 1 % (0-3) Neutrophils # (Auto) 8.3 x10^3uL (1.8-7.7) Lymphocytes # (Auto) 4.2 x10^3/uL (1.0-4.8) Monocytes # (Auto) 1.2 x10^3/uL (0.0-1.1) Eosinophils # (Auto) 0.1 x10^3/uL (0.0-0.7) Basophils # (Auto) 0.1 x10^3/uL (0.0-0.2) Sodium Level 140 mmol/L (136-145) Potassium Level 4.2 mmol/L (3.5-5.1) Chloride Level 103 mmol/L (98-107) Carbon Dioxide Level 28 mmol/L (21-32) Anion Gap 9 (6-14) Blood Urea Nitrogen 39 mg/dL (7-20) Creatinine 1.4 mg/dL (0.6-1.0) Estimated GFR (Cockcroft-Gault) 37.2 Glucose Level 141 mg/dL (70-99) Calcium Level 8.8 mg/dL (8.5-10.1) Triglycerides Level 112 mg/dL (0-150) Cholesterol Level 157 mg/dL (0-200) LDL Cholesterol, Calculated 81 mg/dL (0-100) VLDL Cholesterol, Calculated 22 mg/dL (0-40) Non-HDL Cholesterol Calculated 103 mg/dL (0-129) HDL Cholesterol 54 mg/dL (40-60) Cholesterol/HDL Ratio 2.9 Medications Current Medications Lorazepam (Ativan) 0.5 mg 1X ONCE IV Last administered on 04/17/18at 21:29; Start 04/17/18 at 21:00; Stop 04/17/18 at 21:02; Status DC Albuterol/ Ipratropium (Duoneb) 3 ml 1X ONCE NEB Last administered on at 22:13; Start 04/17/18 at 22:15; Stop 04/17/18 at 22:16; Status DC Lorazepam (Ativan) 1 mg 1X ONCE IV Last administered on 04/17/18at 23:04; Start 04/17/18 at 23:00; Stop 04/17/18 at 23:01; Status DC Ondansetron HCl (Zofran) 4 mg PRN Q8HRS PRN IV NAUSEA/VOMITING; Start 04/18/18 at 00:30; Stop 04/19/18 at 00:29; Status DC Fentanyl Citrate (Fentanyl 2ml Vial) 50 mcg PRN Q2HR PRN IV PAIN Last administered on 04/18/18at 02:07; Start 04/18/18 at 00:30; Stop 04/19/18 at 00:29 ; Status DC Acetaminophen (Tylenol) 650 mg PRN Q4HRS PRN PO FEVER; Start 04/18/18 at 00:30 ; Stop 04/19/18 at 00:29; Status DC Albuterol/ Ipratropium (Duoneb) 3 ml RTQID NEB Last administered on 04/19/18at 11:24; Start 04/18/18 at 08:00; Stop 04/19/18 at 07:59; Status DC Alprazolam (Xanax) 0.5 mg PRN Q8HRS PRN PO ANXIETY / AGITATION; Start 04/18/18 at 01:45 Sodium Chloride 500 ml @ 500 mls/hr 1X ONCE IV Last administered on at 02:06; Start 04/18/18 at 01:45; Stop 04/18/18 at 02:44; Status DC Pharmacy Consult (C.diff Med Screen By Rx) 1 each 1X ONCE [facility] ; Start 04/18/18 at 09:00; Stop 04/18/18 at 09:01; Status DC Piperacillin Sod/ Tazobactam Sod (Zosyn Per Pharmacy) 1 each PRN DAILY PRN [facility] SEE COMMENTS; Start 04/18/18 at 11:00 Budesonide (Pulmicort) 0.5 mg RTBID NEB Last administered on 04/19/18at 07:32; Start 04/18/18 at 11:00 Guaifenesin (Mucinex) 600 mg BID PO Last administered on 04/19/18at 08:06; Start 04/18/18 at 11:00 Piperacillin Sod/ Tazobactam Sod 3.375 gm/Sodium Chloride 50 ml @ 100 mls/hr Q6HRS IV Last administered on 04/19/18at 06:03; Start 04/18/18 at 11:00 Alprazolam (Xanax) 0.5 mg HS PO Last administered on 04/18/18at 21:09; Start at 21:00 Aspirin (Children'S Aspirin) 81 mg DAILY PO Last administered on 04/19/18at 08: 06; Start 04/18/18 at 15:30 Bisacodyl (Dulcolax Tab) 10 mg PRN DAILY PRN PO CONSTIPATION; Start 04/18/18 at 14:45 Cetirizine HCl (ZyrTEC) 10 mg DAILY PO Last administered on 04/19/18 08:06; Start 04/18/18 at 15:30 Morphine Sulfate (Ms Contin) 15 mg BID PO Last administered on 04/19/18 08:07 ; Start 04/18/18 at 21:00 Albuterol Sulfate (Ventolin Neb Soln) 2.5 mg PRN Q6HRS PRN NEB SHORTNESS OF BREATH; Start 04/18/18 at 14:45 Citalopram Hydrobromide (CeleXA) 40 mg DAILY PO Last administered on 04/19/18 08:07; Start 04/18/18 at 15:30 Non-Formulary Medication (Guaifenesin (Mucinex)) 1,200 mg DAILY PO ; Start 04/19 at 09:00; Status UNV Famotidine (Pepcid) 20 mg DAILY PO Last administered on 04/19/18 08:06; Start 04/18/18 at 15:30; Stop 04/19/18 at 09:34; Status DC Ropinirole HCl (Requip) 1 mg QHS PO Last administered on 04/18/18at 21:08; Start 04/18/18 at 21:00 Oxybutynin Chloride (Ditropan) 5 mg [id number] PO Last administered on 04/19/18 08 :06; Start 04/18/18 at 15:30 Non-Formulary Medication (Tolterodine Tartrate (Detrol La)) 1 cap DAILY PO ; Start 04/19/18 at 09:00; Status UNV Varenicline (Chantix) 1 mg BID PO Last administered on 04/19/18at 10:03; Start 04/18/18 at 21:00 Lactobacillus Rhamnosus (Culturelle) 1 cap BID PO Last administered on 08:06; Start 04/18/18 at 21:00 Enoxaparin Sodium (Lovenox 40mg Syringe) 40 mg Q24H SQ Last administered on 04/18/18at 18:03; Start 04/18/18 at 17:45 Morphine Sulfate (Morphine Sulfate) 2 mg PRN Q3HRS PRN IV PAIN Last administered on 04/19/18 02:14; Start 04/19/18 at 01:45 Ondansetron HCl (Zofran) 4 mg PRN Q6HRS PRN IV NAUSEA/VOMITING Last administered on 04/19/18at 02:15; Start 04/19/18 at 01:45 Multi-Ingredient Mouthwash/Gargle (Gi Cocktail) 20 ml PRN QID PRN PO CHEST PAIN Last administered on 04/19/18at 02:15; Start 04/19/18 at 01:45 Nitroglycerin (Nitrostat) 0.4 mg PRN Q5MIN PRN SL X 3 DOSES FOR CHEST PAIN; Start 04/19/18 at 02:30 Prochlorperazine Edisylate (Compazine) 5 mg PRN Q6HRS PRN IV NAUSEA/VOMITING Last administered on 04/19/18at 03:13; Start 04/19/18 at 03:00 Diphenhydramine HCl (Benadryl) 12.5 mg PRN Q6HRS PRN IVP ITCHING Last administered on 04/19/18at 03:13; Start 04/19/18 at 03:00 Famotidine (Pepcid) 20 mg QHS PO ; Start 04/19/18 at 21:00 Pantoprazole Sodium (Protonix) 40 mg DAILYAC PO Last administered on 04/19/18at 10:03; Start 04/19/18 at 10:00 Active Scripts Active Prednisone 20 Mg Tablet 1 Tab PO DAILY Morphine Sulfate Er (Morphine Sulfate) 15 Mg Tablet.er 15 Mg PO BID Hydrocodone-Apap 5-325 (Hydrocodone Bit/Acetaminophen) 1 Each Tablet 1 Tab PO PRN Q6HRS PRN Bisacodyl 5 Mg Tablet.dr 10 Mg PO PRN DAILY PRN Reported Detrol La (Tolterodine Tartrate) 2 Mg Cap.er.24h 1 Cap PO DAILY Proair Hfa Inhaler (Albuterol Sulfate) 8.5 Gm Hfa.aer.ad 1 Puff INH PRN Q6HRS PRN Ropinirole Hcl 1 Mg Tablet 1 Mg PO HS Xanax (Alprazolam) 0.5 Mg Tablet 1 Tab PO HS Vesicare (Solifenacin Succinate) 10 Mg Tablet 10 Mg PO DAILY Aspirin 81 Mg Tab.chew 81 Mg PO DAILY Chantix (Varenicline Tartrate) 1 Mg Tablet 1 Mg PO BID Ranitidine Hcl 150 Mg Capsule 150 Mg PO DAILY Zyrtec (Cetirizine Hcl) 10 Mg Tablet 10 Mg PO DAILY Lexapro (Escitalopram Oxalate) 20 Mg Tablet 20 Mg PO DAILY Mucinex (Guaifenesin) 1,200 Mg Tbmp.12hr 1,200 Mg PO DAILY Vitals/I & O Vital Sign - Last 24 Hours 04/18/18 04/18/18 04/18/18 04/18/18 15:00 15:03 19:00 19:45 Temp 98.7 98.4 98.7 98.4 Pulse 89 74 Resp 20 20 B/P (MAP) 98/60 (73) 129/63 (85) Pulse Ox 92 92 96 O2 Delivery Room Air Room Air Room Air 04/18/18 04/18/18 04/18/18 04/18/18 19:52 19:54 21:09 23:00 Temp 98.0 98.0 Pulse 82 Resp 18 18 B/P (MAP) 111/54 (73) Pulse Ox 95 95 95 90 O2 Delivery Room Air Room Air Room Air 04/19/18 04/19/18 04/19/18 04/19/18 01:19 02:14 02:30 02:52 Temp 98.1 98.1 Pulse 65 Resp 18 18 20 20 B/P (MAP) 148/70 (96) Pulse Ox 90 90 92 90 O2 Delivery Room Air Room Air Room Air Room Air 04/19/18 04/19/18 04/19/18 04/19/18 07:00 07:33 07:34 08:00 Pulse 71 Resp 18 B/P (MAP) 118/52 (74) Pulse Ox 94 95 97 O2 Delivery Room Air Room Air Room Air Room Air 04/19/18 04/19/18 04/19/18 08:07 11:00 11:26 Temp 98.1 98.1 Pulse 77 Resp 20 20 B/P (MAP) 121/68 (85) Pulse Ox 97 93 95 O2 Delivery Room Air Room Air Room Air Intake and Output 04/18/18 04/18/18 04/19/18 15:00 23:00 07:00 Intake Total 240 ml 120 ml 220 ml Balance 240 ml 120 ml 220 ml MINISTERIO ARREGUIN MD Apr 19, 2018 11:44
[2018-04-19 15:00] VITALS: BP 121/55
--- NOTE | 2018-04-19 17:09 | PDOC3 ---
Discharge Summary Date of Admission: Apr 18, 2018 Date of Discharge: Apr 19, 2018 Follow-Up: 3-5 days Admitting Diagnosis comment: discharge diagnosis Assessment/Plan IMPRESSION: 1. acute exacerbation of chronic obstructive pulmonary disease and acute bronchitis. 2. Acute bronchitis 3. 40 pk yrs tobacco use 4. elevated D-dimer, obtain venous 5. acute hypoxic resp failure Dopplers of lower extremities.neg dvt plan 1. educated patient regarding importance of tobacco cessation completely. This is her ongoing trigger contributing to recurrent admissions. 2. DuoNeb qid. 3. steroid by nebulizer. 4. avoid resp irritants 5. mucolytics. no systemic steroids 6. home with po augmentin today 7. sq lovenox dvt prophylaxis 8. po protonix Vitals Vitals Vital Signs Date Time Temp Pulse Resp B/P (MAP) Pulse Ox O2 Delivery O2 Flow Rate FiO2 04/19/18 11:26 95 Room Air 04/19/18 11:00 98.1 77 20 121/68 (85) 98.1 Physical Exam General: Alert, Oriented X3, Cooperative, No acute distress Heart: Regular rate Lungs: Clear, distant bs Abdomen: Normal bowel sounds, Soft Extremities: No clubbing, No cyanosis Skin: No significant lesion Labs FINAL DIAGNOSIS Problems Medical Problems: (1) Dyspnea Status: Acute Brief Hospital Course Ms. Rouse is a 72 old [sex] who presented with [copd exac, resp failure ] CONDITION AT DISCHARGE: Improved Discharge Medications Current Medications Lorazepam (Ativan) 0.5 mg 1X ONCE IV Last administered on 04/17/18at 21:29; Start 04/17/18 at 21:00; Stop 04/17/18 at 21:02; Status DC Albuterol/ Ipratropium (Duoneb) 3 ml 1X ONCE NEB Last administered on at 22:13; Start 04/17/18 at 22:15; Stop 04/17/18 at 22:16; Status DC Lorazepam (Ativan) 1 mg 1X ONCE IV Last administered on 04/17/18at 23:04; Start 04/17/18 at 23:00; Stop 04/17/18 at 23:01; Status DC Ondansetron HCl (Zofran) 4 mg PRN Q8HRS PRN IV NAUSEA/VOMITING; Start 04/18/18 at 00:30; Stop 04/19/18 at 00:29; Status DC Fentanyl Citrate (Fentanyl 2ml Vial) 50 mcg PRN Q2HR PRN IV PAIN Last administered on 04/18/18at 02:07; Start 04/18/18 at 00:30; Stop 04/19/18 at 00:29 ; Status DC Acetaminophen (Tylenol) 650 mg PRN Q4HRS PRN PO FEVER; Start 04/18/18 at 00:30 ; Stop 04/19/18 at 00:29; Status DC Albuterol/ Ipratropium (Duoneb) 3 ml RTQID NEB Last administered on 04/19/18at 11:24; Start 04/18/18 at 08:00; Stop 04/19/18 at 07:59; Status DC Alprazolam (Xanax) 0.5 mg PRN Q8HRS PRN PO ANXIETY / AGITATION; Start 04/18/18 at 01:45 Sodium Chloride 500 ml @ 500 mls/hr 1X ONCE IV Last administered on at 02:06; Start 04/18/18 at 01:45; Stop 04/18/18 at 02:44; Status DC Pharmacy Consult (C.diff Med Screen By Rx) 1 each 1X ONCE MC ; Start 04/18/18 at 09:00; Stop 04/18/18 at 09:01; Status DC Piperacillin Sod/ Tazobactam Sod (Zosyn Per Pharmacy) 1 each PRN DAILY PRN MC SEE COMMENTS; Start 04/18/18 at 11:00 Budesonide (Pulmicort) 0.5 mg RTBID NEB Last administered on 04/19/18at 07:32; Start 04/18/18 at 11:00 Guaifenesin (Mucinex) 600 mg BID PO Last administered on 04/19/18at 08:06; Start 04/18/18 at 11:00 Piperacillin Sod/ Tazobactam Sod 3.375 gm/Sodium Chloride 50 ml @ 100 mls/hr Q6HRS IV Last administered on 04/19/18at 12:28; Start 04/18/18 at 11:00 Alprazolam (Xanax) 0.5 mg HS PO Last administered on 04/18/18at 21:09; Start at 21:00 Aspirin (Children'S Aspirin) 81 mg DAILY PO Last administered on 04/19/18at 08: 06; Start 04/18/18 at 15:30 Bisacodyl (Dulcolax Tab) 10 mg PRN DAILY PRN PO CONSTIPATION; Start 04/18/18 at 14:45 Cetirizine HCl (ZyrTEC) 10 mg DAILY PO Last administered on 04/19/18at 08:06; Start 04/18/18 at 15:30 Morphine Sulfate (Ms Contin) 15 mg BID PO Last administered on 04/19/18at 08:07 ; Start 04/18/18 at 21:00 Albuterol Sulfate (Ventolin Neb Soln) 2.5 mg PRN Q6HRS PRN NEB SHORTNESS OF BREATH; Start 04/18/18 at 14:45 Citalopram Hydrobromide (CeleXA) 40 mg DAILY PO Last administered on 04/19/18at 08:07; Start 04/18/18 at 15:30 Non-Formulary Medication (Guaifenesin (Mucinex)) 1,200 mg DAILY PO ; Start 04/19 at 09:00; Status UNV Famotidine (Pepcid) 20 mg DAILY PO Last administered on 04/19/18at 08:06; Start 04/18/18 at 15:30; Stop 04/19/18 at 09:34; Status DC Ropinirole HCl (Requip) 1 mg QHS PO Last administered on 04/18/18at 21:08; Start 04/18/18 at 21:00 Oxybutynin Chloride (Ditropan) 5 mg [id number] PO Last administered on 04/19/18at 15 :29; Start 04/18/18 at 15:30 Non-Formulary Medication (Tolterodine Tartrate (Detrol La)) 1 cap DAILY PO ; Start 04/19/18 at 09:00; Status UNV Varenicline (Chantix) 1 mg BID PO Last administered on 04/19/18at 10:03; Start 04/18/18 at 21:00 Lactobacillus Rhamnosus (Culturelle) 1 cap BID PO Last administered on at 08:06; Start 04/18/18 at 21:00 Enoxaparin Sodium (Lovenox 40mg Syringe) 40 mg Q24H SQ Last administered on 04/18/18at 18:03; Start 04/18/18 at 17:45 Morphine Sulfate (Morphine Sulfate) 2 mg PRN Q3HRS PRN IV PAIN Last administered on 04/19/18at 02:14; Start 04/19/18 at 01:45 Ondansetron HCl (Zofran) 4 mg PRN Q6HRS PRN IV NAUSEA/VOMITING 1ST CHOICE Last administered on 04/19/18at 02:15; Start 04/19/18 at 01:45 Multi-Ingredient Mouthwash/Gargle (Gi Cocktail) 20 ml PRN QID PRN PO CHEST PAIN Last administered on 04/19/18at 02:15; Start 04/19/18 at 01:45 Nitroglycerin (Nitrostat) 0.4 mg PRN Q5MIN PRN SL X 3 DOSES FOR CHEST PAIN; Start 04/19/18 at 02:30 Prochlorperazine Edisylate (Compazine) 5 mg PRN Q6HRS PRN IV NAUSEA/VOMITING 2ND CHOICE Last administered on 04/19/18at 03:13; Start 04/19/18 at 03:00 Diphenhydramine HCl (Benadryl) 12.5 mg PRN Q6HRS PRN IVP ITCHING Last administered on 04/19/18at 03:13; Start 04/19/18 at 03:00 Famotidine (Pepcid) 20 mg QHS PO ; Start 04/19/18 at 21:00 Pantoprazole Sodium (Protonix) 40 mg DAILYAC PO Last administered on 04/19/18at 10:03; Start 04/19/18 at 10:00 Active Scripts Active Prednisone 20 Mg Tablet 1 Tab PO DAILY Morphine Sulfate Er (Morphine Sulfate) 15 Mg Tablet.er 15 Mg PO BID Hydrocodone-Apap 5-325 (Hydrocodone Bit/Acetaminophen) 1 Each Tablet 1 Tab PO PRN Q6HRS PRN Bisacodyl 5 Mg Tablet.dr 10 Mg PO PRN DAILY PRN Reported Detrol La (Tolterodine Tartrate) 2 Mg Cap.er.24h 1 Cap PO DAILY Proair Hfa Inhaler (Albuterol Sulfate) 8.5 Gm Hfa.aer.ad 1 Puff INH PRN Q6HRS PRN Ropinirole Hcl 1 Mg Tablet 1 Mg PO HS Xanax (Alprazolam) 0.5 Mg Tablet 1 Tab PO HS Vesicare (Solifenacin Succinate) 10 Mg Tablet 10 Mg PO DAILY Aspirin 81 Mg Tab.chew 81 Mg PO DAILY Chantix (Varenicline Tartrate) 1 Mg Tablet 1 Mg PO BID Ranitidine Hcl 150 Mg Capsule 150 Mg PO DAILY Zyrtec (Cetirizine Hcl) 10 Mg Tablet 10 Mg PO DAILY Lexapro (Escitalopram Oxalate) 20 Mg Tablet 20 Mg PO DAILY Mucinex (Guaifenesin) 1,200 Mg Tbmp.12hr 1,200 Mg PO DAILY Vital Signs Vital Signs Date Time Temp Pulse Resp B/P (MAP) Pulse Ox O2 Delivery O2 Flow Rate FiO2 04/19/18 15:55 95 Room Air 04/19/18 15:00 98.4 80 20 121/55 (77) 98.4 Labs Laboratory Tests Test 04/17/18 21:20 04/17/18 21:41 04/18/18 05:15 04/18/18 11:50 White Blood Count 14.4 x10^3/uL (4.0-11.0) Red Blood Count 4.81 x10^6/uL (3.50-5.40) Hemoglobin 15.2 g/dL (12.0-15.5) Hematocrit 44.2 % (36.0-47.0) Mean Corpuscular Volume 92 fL (79-100) Mean Corpuscular Hemoglobin 32 pg (25-35) Mean Corpuscular Hemoglobin Concent 35 g/dL (31-37) Red Cell Distribution Width 13.6 % (11.5-14.5) Platelet Count 309 x10^3/uL (140-400) Neutrophils (%) (Auto) 86 % (31-73) Lymphocytes (%) (Auto) 11 % (24-48) Monocytes (%) (Auto) 2 % (0-9) Eosinophils (%) (Auto) 0 % (0-3) Basophils (%) (Auto) 0 % (0-3) Neutrophils # (Auto) 12.4 x10^3uL (1.8-7.7) Lymphocytes # (Auto) 1.6 x10^3/uL (1.0-4.8) Monocytes # (Auto) 0.4 x10^3/uL (0.0-1.1) Eosinophils # (Auto) 0.0 x10^3/uL (0.0-0.7) Basophils # (Auto) 0.1 x10^3/uL (0.0-0.2) Segmented Neutrophils % 90 % (35-66) Lymphocytes % 7 % (24-48) Monocytes % 2 % (0-10) Eosinophils % 1 % (0-5) Platelet Estimate Adequate (ADEQUATE) D-Dimer (Jessica) 1.08 ug/mlFEU (0.00-0.50) Sodium Level 140 mmol/L (136-145) Potassium Level 4.1 mmol/L (3.5-5.1) Chloride Level 104 mmol/L (98-107) Carbon Dioxide Level 24 mmol/L (21-32) Anion Gap 12 (6-14) Blood Urea Nitrogen 32 mg/dL (7-20) Creatinine 1.3 mg/dL (0.6-1.0) Estimated GFR (Cockcroft-Gault) 40.5 Glucose Level 158 mg/dL (70-99) Calcium Level 9.1 mg/dL (8.5-10.1) Troponin I Quantitative < 0.017 ng/mL (0.000-0.055) < 0.017 ng/mL (0.000-0.055) < 0.017 ng/mL (0.000-0.055) VQ-Asj-U-Type Natriuretic Peptide 48 pg/mL (0-124) Test 04/18/18 18:00 04/19/18 02:45 Troponin I Quantitative < 0.017 ng/mL (0.000-0.055) < 0.017 ng/mL (0.000-0.055) White Blood Count 13.9 x10^3/uL (4.0-11.0) Red Blood Count 4.52 x10^6/uL (3.50-5.40) Hemoglobin 14.2 g/dL (12.0-15.5) Hematocrit 41.6 % (36.0-47.0) Mean Corpuscular Volume 92 fL (79-100) Mean Corpuscular Hemoglobin 32 pg (25-35) Mean Corpuscular Hemoglobin Concent 34 g/dL (31-37) Red Cell Distribution Width 13.6 % (11.5-14.5) Platelet Count 326 x10^3/uL (140-400) Neutrophils (%) (Auto) 60 % (31-73) Lymphocytes (%) (Auto) 30 % (24-48) Monocytes (%) (Auto) 9 % (0-9) Eosinophils (%) (Auto) 1 % (0-3) Basophils (%) (Auto) 1 % (0-3) Neutrophils # (Auto) 8.3 x10^3uL (1.8-7.7) Lymphocytes # (Auto) 4.2 x10^3/uL (1.0-4.8) Monocytes # (Auto) 1.2 x10^3/uL (0.0-1.1) Eosinophils # (Auto) 0.1 x10^3/uL (0.0-0.7) Basophils # (Auto) 0.1 x10^3/uL (0.0-0.2) Sodium Level 140 mmol/L (136-145) Potassium Level 4.2 mmol/L (3.5-5.1) Chloride Level 103 mmol/L (98-107) Carbon Dioxide Level 28 mmol/L (21-32) Anion Gap 9 (6-14) Blood Urea Nitrogen 39 mg/dL (7-20) Creatinine 1.4 mg/dL (0.6-1.0) Estimated GFR (Cockcroft-Gault) 37.2 Glucose Level 141 mg/dL (70-99) Calcium Level 8.8 mg/dL (8.5-10.1) Triglycerides Level 112 mg/dL (0-150) Cholesterol Level 157 mg/dL (0-200) LDL Cholesterol, Calculated 81 mg/dL (0-100) VLDL Cholesterol, Calculated 22 mg/dL (0-40) Non-HDL Cholesterol Calculated 103 mg/dL (0-129) HDL Cholesterol 54 mg/dL (40-60) Cholesterol/HDL Ratio 2.9 Laboratory Tests Test 04/18/18 18:00 04/19/18 02:45 Troponin I Quantitative < 0.017 ng/mL (0.000-0.055) < 0.017 ng/mL (0.000-0.055) White Blood Count 13.9 x10^3/uL (4.0-11.0) Red Blood Count 4.52 x10^6/uL (3.50-5.40) Hemoglobin 14.2 g/dL (12.0-15.5) Hematocrit 41.6 % (36.0-47.0) Mean Corpuscular Volume 92 fL (79-100) Mean Corpuscular Hemoglobin 32 pg (25-35) Mean Corpuscular Hemoglobin Concent 34 g/dL (31-37) Red Cell Distribution Width 13.6 % (11.5-14.5) Platelet Count 326 x10^3/uL (140-400) Neutrophils (%) (Auto) 60 % (31-73) Lymphocytes (%) (Auto) 30 % (24-48) Monocytes (%) (Auto) 9 % (0-9) Eosinophils (%) (Auto) 1 % (0-3) Basophils (%) (Auto) 1 % (0-3) Neutrophils # (Auto) 8.3 x10^3uL (1.8-7.7) Lymphocytes # (Auto) 4.2 x10^3/uL (1.0-4.8) Monocytes # (Auto) 1.2 x10^3/uL (0.0-1.1) Eosinophils # (Auto) 0.1 x10^3/uL (0.0-0.7) Basophils # (Auto) 0.1 x10^3/uL (0.0-0.2) Sodium Level 140 mmol/L (136-145) Potassium Level 4.2 mmol/L (3.5-5.1) Chloride Level 103 mmol/L (98-107) Carbon Dioxide Level 28 mmol/L (21-32) Anion Gap 9 (6-14) Blood Urea Nitrogen 39 mg/dL (7-20) Creatinine 1.4 mg/dL (0.6-1.0) Estimated GFR (Cockcroft-Gault) 37.2 Glucose Level 141 mg/dL (70-99) Calcium Level 8.8 mg/dL (8.5-10.1) Triglycerides Level 112 mg/dL (0-150) Cholesterol Level 157 mg/dL (0-200) LDL Cholesterol, Calculated 81 mg/dL (0-100) VLDL Cholesterol, Calculated 22 mg/dL (0-40) Non-HDL Cholesterol Calculated 103 mg/dL (0-129) HDL Cholesterol 54 mg/dL (40-60) Cholesterol/HDL Ratio 2.9 Allergies Allergies Coded Allergies Type Severity Reaction Last Updated Verified adhesive tape Allergy Intermediate 10/25/16 Yes nickel Allergy Intermediate 10/25/16 Yes Disposition/Orders: D/C to Home Patient Instructions d/c planning 30 min MINISTERIO ARREGUIN MD Apr 19, 2018 17:09
--- NOTE | 2018-04-19 17:10 | DISCH ---
DISCHARGE INSTRUCTIONS Condition on Discharge Condition on Discharge: Stable Activity After Discharge Activity Instructions for Disc: Activity as tolerated Lifting Instructions after Dis: No heavy lifting, No pulling or pushing Exercise Instruction after Dis: Progress as tolerated Driving Instructions after Dis: Do not drive today Weight Bearing Status after Di: No restrictions Diet after Discharge Diet after Discharge: Cardiac Wound Incision Care Wound/Incision Care: Keep wound/cast CDI Wound Care Equipment: Dressings Checks after Discharge Checks after discharge: Check blood press - daily Contacting the DR. after DC Call your doctor for: If your condition worsens Warfarin Follow-Up Warfarin Follow UP: no smoking MINISTERIO ARREGUIN MD Apr 19, 2018 17:10
[2018-04-19] MEDS ORDERED: GUAI600T47 PO (17:15)
[2018-04-19] MEDS ORDERED: AMOX1TAB58 PO (17:15)
[2018-04-19] MEDS: ENOXAPARIN 40 MG/0.4 ML SYRINGE. SQ SCH (17:44)
[2018-04-19] MEDS ORDERED: FAMOTIDINE 20 MG TABLET. PO SCH (21:00)
== END 2018-04-19 17:40 | disposition home or self-care (01) | DRG 871 ==
LOC: ER 20:35 → 5 SOUTH 04-18 00:15
PROVIDERS: ADMIT Internal Medicine; ATTEND Internal Medicine
DX: A41.9 Sepsis, unspecified organism (principal); J96.01 Acute respiratory failure with hypoxia; J44.1 Chronic obstructive pulmonary disease with (acute) exacerbation; J44.0 Chronic obstructive pulmonary disease with (acute) lower respiratory infection; E78.00 Pure hypercholesterolemia, unspecified; J20.9 Acute bronchitis, unspecified; F32.9 Major depressive disorder, single episode, unspecified; K21.9 Gastro-esophageal reflux disease without esophagitis; M19.90 Unspecified osteoarthritis, unspecified site; E78.5 Hyperlipidemia, unspecified; F17.210 Nicotine dependence, cigarettes, uncomplicated; F41.9 Anxiety disorder, unspecified; I10 Essential (primary) hypertension; K57.90 Diverticulosis of intestine, part unspecified, without perforation or abscess without bleeding; G47.33 Obstructive sleep apnea (adult) (pediatric); G25.81 Restless legs syndrome; R79.1 Abnormal coagulation profile; Z82.49 Family history of ischemic heart disease and other diseases of the circulatory system; Z84.89 Family history of other specified conditions; Z90.710 Acquired absence of both cervix and uterus; Z86.011 Personal history of benign neoplasm of the brain; Z71.6 Tobacco abuse counseling; Z88.8 Allergy status to other drugs, medicaments and biological substances; Z91.048 Other nonmedicinal substance allergy status
CPT/HCPCS: 36415; 70450; 70490; 71045; 71250; 80048; 80053; 80061; 83880; 84484; 85007; 85025; 85379; 93005; 93970; 94640; 94760; 96374; 96376; J0780; J1200; J1650; J2060; J2270; J2405; J2543; J3010; J7040; J7620; J7626; 99285-25

== ENCOUNTER → 2018-05-15 | Outpatient (CLI) | payer BC, MEDICARE ==
[2018-04-19 15:00] VITALS: BP 121/55
[~2018-05-15] MED LIST changes: +AMOX1TAB58 PO; +GADOBUTROL 7.5 MMOL/7.5 ML VIAL IV ONE; +GUAI600T47 PO; -HYDR-2758 PO; +HYDR-2761 PO
[2018-05-15 13:46] LABS: GFR 54.8
--- NOTE | 2018-05-15 15:28 | RAD ---
EXAM: Thoracic spine MRI without and with contrast. HISTORY: Meningioma follow-up. TECHNIQUE: Multiplanar, multisequence magnetic resonance imaging of the thoracic spine was performed prior to and following the administration of 7.5 cc Gadavist intravenous contrast. COMPARISON: 04/23/2017 FINDINGS: There is thoracolumbar scoliosis. There is slight increased thoracic kyphosis. There is mild anterolisthesis of C7 on T1. There is degenerative endplate remodeling with disc space narrowing, osteophytosis and Schmorl's node formation at multiple thoracic levels. There is associated degenerative endplate edema at multiple levels. There is no suspicious osseous lesion or acute or subacute fracture. There is a 3 mm T2 hyperintense lesion within the left dorsal aspect of the thoracic spinal cord and associated decreased cord caliber at this level likely due to myelomalacia. There are overlying laminectomy changes at T4-T6. No suspicious enhancing lesion is seen in this location. There is slight increased signal on postcontrast images along the left posterior aspect of the spinal cord at this level which is also seen on precontrast images and may be due to scar/granulation tissue. At T1-T2, there is no stenosis. At T2-T3, there is a right foraminal disc protrusion superimposed on endplate remodeling. There is mild bilateral facet arthropathy. There is mild right foraminal stenosis. At T3-T4, there is right posterior lateral predominant endplate remodeling. There is mild bilateral facet arthropathy. There is mild right foraminal stenosis. At T4-T5, there is endplate remodeling. There are laminectomy changes. There is no stenosis. At T5-T6, there is a right foraminal disc protrusion with slight superior extrusion superimposed on endplate remodeling. There are laminotomy changes. There is no stenosis. At T6-T7, there is endplate remodeling. There are laminectomy changes. There is no stenosis. At T7-T8, there is a right posterior lateral predominant disc bulge and endplate remodeling. There is mild bilateral facet arthropathy. There is mild bilateral foraminal stenosis. At T8-T9, there is a disc bulge and endplate remodeling. There may be superimposed shallow right paracentral disc protrusion. There is facet arthropathy. There is mild left foraminal stenosis. At T9-T10, there is a right posterior lateral predominant disc bulge and endplate remodeling. There is mild bilateral facet arthropathy. There is mild right greater than left foraminal stenosis. At T10-T11, there is a disc bulge and endplate osteophytosis. There may be superimposed right foraminal to extra foraminal disc protrusion with slight superior extrusion. There is mild bilateral facet arthropathy. There is suggestion of T2 hyperintensity within the thoracic spinal cord at this level which is likely artifactual. There is moderate to severe right and mild left foraminal stenosis. At T11-T12, there is no stenosis. At T12-L1, there are bilateral foraminal to extra foraminal disc protrusion superimposed on a disc bulge and endplate remodeling. There is mild bilateral facet arthropathy. There is mild bilateral foraminal stenosis. Limited evaluation of the cervical and lumbar spine demonstrates multilevel degenerative change. This is not formally assessed on this exam. IMPRESSION: 1. Findings consistent with T4-T6 laminectomies and meningioma resection. No recurrent or residual enhancing lesion is seen within this location. There is a stable small focus of mild malacia within the left dorsal aspect of the spinal cord and decreased cord caliber at T4-T5, likely due to myelomalacia. 2. Multilevel degenerative change throughout the thoracic spine, described in detail above. This results in stenosis at the aforementioned levels and is not significantly changed compared to the prior study. 3. Multilevel degenerative change within the cervical spine, not formally assessed on the current exam. The previously suspected myelomalacia at C4-C5 is less conspicuous on the current exam. Electronically signed by: Radha Zaman MD (05/15/2018 3:25 PM) [email or web address]
== END | disposition home or self-care (01) ==
LOC: MRI 13:53
PROVIDERS: ATTEND Neurological Surgery
DX: D32.1 Benign neoplasm of spinal meninges (principal); M47.892 Other spondylosis, cervical region; M48.04 Spinal stenosis, thoracic region
CPT/HCPCS: 36415; 72157; 82565; A9585

== ENCOUNTER → 2018-06-03 | Outpatient (CLI) | payer BC, MEDICARE ==
[~2018-06-03] MED LIST changes: -GADOBUTROL 7.5 MMOL/7.5 ML VIAL IV ONE
--- NOTE | 2018-06-03 14:36 | RAD ---
MRI Cervical Spine Without Contrast History: Cervical stenosis Technique: Multiplanar, multi sequential noncontrast MR imaging was performed of the cervical spine. Comparison: None Findings: Cervical cord caliber is within normal limits. There is no expansile cord signal abnormality. There is mild T2 and STIR hyperintense signal abnormality of the cord at the superior aspect of C5. Cervical vertebral body stature is maintained. There is minimal grade 1 anterior spondylolisthesis C3-C4, C6-7, C7-T1, and minimal posterior subluxation C4 relative to C5. There is advanced degenerative disc disease C3-4 and C4-5, to lesser degree at C5-C6. There is heterogeneity of the visualized thyroid gland greater on the right, likely heterogeneous nodule on the right about 2 cm. C2-C3: Neural foramina and spinal canal are adequate. C3-C4: There is right facet degenerative change. There is negligible posterior protrusion with associated annular tear. There is mild buckling of the ligamentum flavum. Central canal is minimally narrowed to about 9 mm. Neural foramina are overall adequate. C4-C5: There is disc osteophyte complex somewhat greater right lateral recess. There is mild buckling of the ligamentum flavum. Central canal narrowed to about 6 to 7 mm. There is uncovertebral degenerative change greater on the left. Right neural foramen is overall adequate, moderate to severe narrowing of the left neural foramen. C5-C6: There is disc osteophyte complex, mild indentation upon the ventral thecal sac somewhat greater right lateral recess. There is mild buckling of the ligamentum flavum. Central canal is narrowed to about 7 mm with a somewhat greater degree of right lateral recess stenosis. There is uncovertebral degenerative change greater on the right. There is moderate to severe right and mild left neural foramina compromise. C6-C7: There is very minimal disc osteophyte complex. Central canal is minimally narrowed to about 9 mm. There is mild uncovertebral degenerative change. There is minimal narrowing of the left neural foramen, right neural foramen adequate. C7-T1: Spinal canal and neural foramina are adequate. Impression: 1. There is spinal stenosis about 6 to 7 mm at C4-5 and to a slightly lesser degree at C5-C6, also minimally at C3-4 and C6-7 as described. 2. There is multilevel cervical degenerative disc disease greatest at C3-4 and C4-5, to lesser degree at C5-C6. There is multilevel spondylosis. 3. Facet and uncovertebral degenerative change contributes to multilevel neural foramina compromise greatest on the right at C5-6 and on the left at C4-5. 4. There is mild nonexpansile T2 signal of the cord at C5, probably myelomalacia. 5. There is heterogeneity of the thyroid gland, likely heterogeneous large nodule on the right better characterized by ultrasound. Electronically signed by: Dane Carrillo MD (06/03/2018 2:32 PM) [email or web address]
== END | disposition home or self-care (01) ==
LOC: MRI 12:12
PROVIDERS: ATTEND Neurological Surgery
DX: M48.02 Spinal stenosis, cervical region (principal); M50.31 Other cervical disc degeneration, high cervical region; M47.892 Other spondylosis, cervical region; M25.78 Osteophyte, vertebrae; M43.13 Spondylolisthesis, cervicothoracic region; M43.12 Spondylolisthesis, cervical region
CPT/HCPCS: 72141

== ENCOUNTER → 2018-06-05 | Outpatient (CLI) | payer BC, MEDICARE ==
[~2018-06-05] MED LIST changes: +ALBU2.5V8 INH; -PROAIR HFA8.5 GM INH
[2018-06-05 16:15] LABS: CALCIUM 9.9 mg/dL (8.5-10.1); CREATININE 1.1 mg/dL (0.6-1.0); POTASSIUM 3.6 mmol/L (3.5-5.1)
--- NOTE | 2018-06-05 17:48 | RAD ---
EXAM: PA and Lateral Views of the Chest DATE: 06/05/2018 2:51 PM INDICATION: DYSPNEA ON EXERTION COMPARISON: No Prior FINDINGS: The heart is not enlarged. Atherosclerotic calcifications of aorta are seen. Mediastinal and hilar contours are stable. Patchy bibasilar opacities likely atelectasis. Eventration of the right hemidiaphragm. No pleural effusion or pneumothorax. IMPRESSION: 1. No radiographic evidence for acute cardiopulmonary process. Electronically signed by: Rafa Chavis MD (06/05/2018 5:44 PM) [facility]
== END | disposition home or self-care (01) ==
LOC: LAB 14:41
PROVIDERS: ATTEND Family Medicine
DX: K44.9 Diaphragmatic hernia without obstruction or gangrene (principal); I70.0 Atherosclerosis of aorta
CPT/HCPCS: 36415; 71046; 80048; 83880; 85379

== ENCOUNTER → 2018-06-06 | Outpatient (CLI) | payer BC, MEDICARE ==
[~2018-06-06] MED LIST changes: +IOHEXOL 300 MG/ML 100ML VIAL. IV ONE; +IOHEXOL 300 MG/ML 100ML VIAL. ONE
--- NOTE | 2018-06-06 13:47 | RAD ---
CT HEAD WO CONTRAST Indication: DOUBLE VISION DIZZY PREV SENT Exposure: One or more of the following individualized dose reduction techniques were utilized for this examination: 1. Automated exposure control 2. Adjustment of the mA and/or kV according to patient size 3. Use of iterative reconstruction technique. Comparison: April 17, 2018 Contrast: None FINDINGS: Posterior fossa is unremarkable. No evidence of acute intracranial hemorrhage or abnormal extra-axial fluid collection. No evidence of mass effect or midline shift. Ventricles are symmetric as are sulci. Brooks-white matter distinction is intact. Visualized orbits are unremarkable. Visualized paranasal sinuses and mastoids are clear. No acute calvarial abnormality. Impression:Negative for acute intracranial hemorrhage or mass effect. Electronically signed by: Tato Nelson MD (06/06/2018 1:43 PM) [email or web address]
--- NOTE | 2018-06-06 13:50 | RAD ---
Examination: CT angiography chest HISTORY: History of shortness of breath, dizziness COMPARISON: 02/05/2018 TECHNIQUE: Axial CT angiographic images of chest were performed with IV contrast. Coronal and sagittal 3-D reformats are performed Exposure: One or more of the following individualized dose reduction techniques were utilized for this examination: 1. Automated exposure control 2. Adjustment of the mA and/or kV according to patient size 3. Use of iterative reconstruction technique FINDINGS: The central airways are patent. Heart size grossly appears unremarkable. The caliber of the aorta grossly appears unremarkable. Mild aortic atherosclerosis. Diffuse coronary artery calcifications identified. There is no evidence of filling defect identified in the main pulmonary arterial trunk and right and left main pulmonary arteries and the visualized lobar, segmental branch of the pulmonary arteries. Mild linear airspace opacity identified in the left lung base likely atelectasis or infiltrate similar to prior exam. Moderate degenerative changes thoracic spine. The visualized liver, spleen, adrenals grossly appears unremarkable. IMPRESSION: 1. No evidence of pulmonary embolism. 2. Coronary artery calcifications. 2. Mild left lung base airspace opacities likely atelectasis or infiltrates similar to prior exam. Electronically signed by: Az De La Cruz MD (06/06/2018 1:46 PM) [id number]
== END | disposition home or self-care (01) ==
LOC: CT 12:48
PROVIDERS: ATTEND Nurse Practitioner
DX: I25.10 Atherosclerotic heart disease of native coronary artery without angina pectoris (principal); I70.0 Atherosclerosis of aorta; M47.814 Spondylosis without myelopathy or radiculopathy, thoracic region
CPT/HCPCS: 70450; 71275; Q9967

== ENCOUNTER → 2018-07-02 | Outpatient (CLI) | payer BC, MEDICARE ==
[~2018-07-02] MED LIST changes: -IOHEXOL 300 MG/ML 100ML VIAL. IV ONE; -IOHEXOL 300 MG/ML 100ML VIAL. ONE
--- NOTE | 2018-07-02 17:21 | RAD ---
Thyroid ultrasound, 07/02/2018: HISTORY: Follow-up thyroid nodules Comparison is made to a study from 12/05/2017. The right lobe of the gland measures 4.4 x 2.8 x 1.9 cm 1 the left lobe of the gland measures 4.2 x 1.9 x 1.7 cm. In the mid to upper portion of the right lobe of the gland there is a 2.5 x 2.0 x 1.9 cm mildly heterogeneous solid appearing thyroid nodule. It demonstrates a mild hypoechoic rim. No calcifications are seen. It appears unchanged in size since 12/05/2017. In the mid to lower aspect of the left lobe of the gland there is a 9 x 8 x 8 mm mildly heterogeneous nodule. Its margins are less clearly defined. No calcifications are seen. It also appears to be unchanged in size. No new thyroid lesion is seen. IMPRESSION: Stable bilateral thyroid nodules. Electronically signed by: Kiel Corea MD (07/02/2018 5:17 PM) [facility]
== END | disposition home or self-care (01) ==
LOC: US 10:48
PROVIDERS: ATTEND Family Medicine
DX: E04.2 Nontoxic multinodular goiter (principal)
CPT/HCPCS: 76536

== ENCOUNTER → 2018-07-02 | Outpatient (CLI) | payer BC, MEDICARE ==
--- NOTE | 2018-07-02 13:33 | CARD ---
MR#: [id number] Date of Study: 07/02/2018 Ordering Physician: JUAN A CHAVEZ, Referring Physician: JUAN A CHAVEZ Tech: Tamela Street RDCS APPROVED REPORT EXAM: Two-dimensional and M-mode echocardiogram with Doppler and color Doppler. Other Information Quality : Fair INDICATION COPD Dyspnea on Exertion 2D DIMENSIONS RVDd2.5 (2.9-3.5cm)Left Atrium(2D)3.1 (1.6-4.0cm) IVSd1.0 (0.7-1.1cm)Aortic Root(2D)2.5 (2.0-3.7cm) LVDd4.9 (3.9-5.9cm)LVOT Diameter1.9 (1.8-2.4cm) PWd1.0 (0.7-1.1cm)LVDs3.4 (2.5-4.0cm) FS (%) 30.0 %SV64.6 ml LVEF(%)57.1 (>50%) Aortic Valve AoV Peak Rickey.139.0cm/sAoV VTI24.4cm AO Peak GR.7.7mmHgLVOT Peak Rickey.138.8cm/s AO Mean GR.4mmHgAVA (VMAX)2.74cm2 YOKASTA (VTI)2.41ip9JU P 1/2 Foki559ld Mitral Valve MV E Npxrwdzc41.9cm/sMV DECEL VNZW449te MV A Roaxzhjd732.1cm/sE/A Ratio0.6 Pulmonary Vein S1 Jcjehzxx79.5cm/sD2 Uvvqfpou85.2cm/s LEFT VENTRICLE The left ventricle is normal size. There is normal left ventricular wall thickness. The left ventricu lar systolic function is normal. The Ejection Fraction is 55-60%. There is normal LV segmental wall m otion. Transmitral Doppler flow pattern is Grade I-abnormal relaxation pattern. RIGHT VENTRICLE The right ventricle is normal size. The right ventricular systolic function is normal. ATRIA The left atrium size is normal. The right atrium size is normal. The interatrial septum is intact wit h no evidence for an atrial septal defect or patent foramen ovale as noted on 2-D or Doppler imaging. AORTIC VALVE The aortic valve is not well visualized. Doppler and Color Flow revealed mild aortic regurgitation. T here is no significant aortic valvular stenosis. MITRAL VALVE The mitral valve is calcified but opens well. There is no evidence of mitral valve prolapse. There is no mitral valve stenosis. Doppler and Color-flow revealed trace mitral regurgitation. TRICUSPID VALVE The tricuspid valve is normal in structure and function. Doppler and Color Flow revealed no tricuspid valve regurgitation noted. There is no tricuspid valve stenosis. PULMONIC VALVE The pulmonic valve is not well visualized. Doppler and Color Flow revealed no pulmonic valvular regur gitation. There is no pulmonic valvular stenosis. GREAT VESSELS The aortic root is normal in size. The ascending aorta is not well seen. The IVC is normal in size an d collapses >50% with inspiration. PERICARDIAL EFFUSION There is no evidence of significant pericardial effusion. Critical Notification Critical Value: No <Conclusion> The left ventricular systolic function is normal. The Ejection Fraction is 55-60%. There is normal LV segmental wall motion. Transmitral Doppler flow pattern is Grade I-abnormal relaxation pattern. Mild aortic regurgitation. Trace mitral regurgitation. There is no evidence of significant pericardial effusion. Signed by : Hank Romero, Electronically Approved : 07/02/2018 13:30:49
--- NOTE | 2018-07-02 15:12 | RAD ---
Exam : Carotid Duplex with Grayscale Ultrasound and Spectral and Color Doppler Analysis 07/02/2018 3:06 PM Clinical Indications: DIZZINESS/DYSPNEA ON EXERTION Comparison study: None available. PQRS Compliance Statement - Stenosis calculations for CT, MR and conventional angiography are based upon measurement of the distal ICA diameter in accordance with the NASCET methodology. Stenosis calculations for carotid ultrasound studies are derived from validated velocity criteria which are known to correlate with the NASCET methodology. Findings: The common, internal and external carotid arteries were examined by grayscale, color and spectral Doppler ultrasound. Minimal leftward vascular disease is noted in the carotid bulbs bilaterally. Vertebral flows antegrade bilaterally. No high-grade visual stenosis is identified. The following are the velocities and ratios in the carotid arteries on both sides: RIGHT ICA PV: 90cm/sec RIGHT CCA PV: 97cm/sec RIGHT ICA ED: 26cm/sec RIGHT IC/CCPV: Less than 2 RIGHT VERTEBRAL: antegrade flow LEFT ICA PV: 73cm/sec LEFT CCA PV: 15cm/sec LEFT ICA ED: 25cm/sec LEFT IC/CCPV: Less than 2 LEFT VERTEBRAL: antegrade flow <50% ICA Stenosis: PSV < 125cm/s (EDV < 40cm/s; SVR < 2.0) 50-69% ICA Stenosis: PSV < 125-229cm/s (EDV 40-99cm/s; SVR 2.0-3.9) >70% ICA Stenosis: PSV > 230cm/s (EDV >100cm/s; SVR >4.0) Impression: Minimal atherosclerotic vascular disease less than 50 percent stenosis of the bilateral internal carotid arteries by ultrasound criterion. Electronically signed by: Sherwin Al MD (07/02/2018 3:08 PM) [id number]
== END | disposition home or self-care (01) ==
LOC: ECHO 10:42
PROVIDERS: ATTEND Nurse Practitioner
DX: I65.23 Occlusion and stenosis of bilateral carotid arteries (principal); I35.1 Nonrheumatic aortic (valve) insufficiency
CPT/HCPCS: 93306; 93880

== ENCOUNTER 2018-09-29 08:49 | Emergency (ER) | payer BC, MEDICARE ==
[~2018-09-29] VITALS: Ht 152.4 cm; Wt 83.9 kg
[2018-09-29 09:26] LABS: BILIRUBIN,URINE NEGATIVE (NEG); CLARITY,URINE CLEAR; COLOR,URINE YELLOW; NITRITE,URINE NEGATIVE (NEG); PROTEIN,URINE NEGATIVE (NEG-TRACE); UROBILINOGEN,URINE 0.2 mg/dL (0.2 mg/dL)
[2018-09-29] MEDS ORDERED: IPRATRPIUM/ALBUTEROL 0.5/2.5MG 3 ML NEBU. NEB ONE (09:30)
[2018-09-29 09:37] LABS: BACTERIA,URINE FEW /HPF (0-FEW); SQUAMOUS EPITHELIAL CELL,UR MOD /LPF
--- NOTE | 2018-09-29 09:50 | RAD ---
AP chest. HISTORY: Left-sided pain x2 weeks, COPD AP view was taken of the chest. Lungs are clear. Heart is normal in size. There is no pleural effusion. There are old right rib fractures. IMPRESSION: 1. No acute infiltrates. Electronically signed by: Manpreet Agarwal MD (09/29/2018 9:48 AM) [facility]
[2018-09-29 09:57] LABS: BASO # 0.1 x10^3/uL (0.0-0.2); BASO % 1 % (0-3); EOS # 0.2 x10^3/uL (0.0-0.7); EOS % 3 % (0-3); HEMATOCRIT 41.3 % (36.0-47.0); HEMOGLOBIN 13.8 g/dL (12.0-15.5); LYMPH # 2.3 x10^3/uL (1.0-4.8); LYMPH % 31 % (24-48); MEAN CORPUSCULAR HEMOGLOBIN 30 pg (25-35); MEAN CORPUSCULAR HGB CONC 33 g/dL (31-37); MEAN CORPUSCULAR VOLUME 90 fL (79-100); MONO # 0.7 x10^3/uL (0.0-1.1); MONO % 9 % (0-9); NEUT # 4.1 x10^3uL (1.8-7.7); NEUT % 55 % (31-73); PLATELET COUNT 287 x10^3/uL (140-400); RED BLOOD COUNT 4.62 x10^6/uL (3.50-5.40); RED CELL DISTRIBUTION WIDTH 13.8 % (11.5-14.5); WHITE BLOOD COUNT 7.4 x10^3/uL (4.0-11.0)
[2018-09-29] MEDS ORDERED: ONDANSETRON PF 4 MG/2 ML VIAL. IV ONE (10:00)
[2018-09-29] MEDS ORDERED: fentaNYL PF VIAL 100 MCG/2 ML VIAL IV ONE (10:00)
[2018-09-29 10:03] LABS: CALCIUM 8.7 mg/dL (8.5-10.1); CREATININE 0.9 mg/dL (0.6-1.0); GFR 61.7; POTASSIUM 3.6 mmol/L (3.5-5.1)
[2018-09-29] MEDS ORDERED: CONTRAST GIVEN. MC PRN (10:15)
[2018-09-29] MEDS ORDERED: IOHEXOL 240 MG/ML 50ML VIAL. PO ONE (10:15)
[2018-09-29] MEDS ORDERED: MORPHINE SULFATE 10 MG/ML VIAL. IV ONE (10:15)
[2018-09-29] MEDS ORDERED: IOHEXOL 300 MG/ML 100ML VIAL. IV ONE (10:15)
[2018-09-29 10:18] LABS: ALBUMIN 3.4 g/dL (3.4-5.0); TOTAL BILIRUBIN 0.3 mg/dL (0.2-1.0); TOTAL PROTEIN 6.9 g/dL (6.4-8.2)
--- NOTE | 2018-09-29 12:26 | RAD ---
CT abdomen and pelvis with contrast. HISTORY: Left flank pain CT scan the abdomen and pelvis was done using 75 mL Omnipaque 300 contrast. There is linear scarring or atelectasis in the lingula without change from an old study. There is a calcified granuloma in the right middle lobe. There is no pleural effusion. A liver lesion is not identified. There is no calcified gallstone or gallbladder wall thickening. Spleen and adrenal glands are normal. Pancreas is normal. There is no mass or hydronephrosis in the kidneys. An intrarenal calculus is not identified. A ureteral calculus is not identified. There is no bowel obstruction or ascites. Appendix is normal. There is not evidence of a diverticulitis. The patient's had a hysterectomy. There is no adenopathy. There is degenerative disc disease in the lower lumbar spine. There is no central spinal stenosis. There is bulging of the disc at several levels. There is lower lumbar facet arthritis especially at L5-S1. IMPRESSION: 1. No renal or ureteral calculus evident. 2. No abdominal or pelvic mass noted. 3. Normal bowel pattern 4. Degenerative changes in the lumbar spine. PQRS Compliance Statement: One or more of the following individualized dose reduction techniques were utilized for this examination: 1. Automated exposure control 2. Adjustment of the mA and/or kV according to patient size 3. Use of iterative reconstruction technique Electronically signed by: Manpreet Agarwal MD (09/29/2018 12:23 PM) [facility]
--- NOTE | 2018-09-29 12:35 | PHYS DOC ---
Past Medical History Past Medical History: Anxiety, COPD, Depression, High Cholesterol Additional Past Medical Histor: seasonal allergies, T4-5 compression, restless leg, Meningioma T4-5 Past Surgical History: Hysterectomy Additional Past Surgical Histo: r)carpal tunnel ulner,trigger finger r),r)ight shoulder FX,rib fx,back Alcohol Use: None Drug Use: None Adult General Chief Complaint Chief Complaint: FLANK PAIN [facility] HPI Patient is a 73 year old female who presents with left flank pain. The patient feels like she might have had low-grade fevers. She does not have a history of kidney stones. She denies dysuria or foul-smelling urine. Review of Systems Review of Systems Constitutional: Denies fever or chills [] Respiratory: Denies cough or shortness of breath [] Cardiovascular: No additional information not addressed in HPI [] GI: See history of present illness : Denies dysuria or hematuria [] Musculoskeletal: Denies back pain or joint pain [] Integument: Denies rash or skin lesions [] Neurologic: Denies headache, focal weakness or sensory changes [] Endocrine: Denies polyuria or polydipsia [] All other systems were reviewed and found to be within normal limits, except as documented in this note. Current Medications Current Medications Current Medications Medications (Trade) Dose Ordered Sig/Deja Start Time Stop Time Status Last Admin Dose Admin Albuterol/ Ipratropium (Duoneb) 3 ml 1X ONCE 09/29/18 09:30 09/29/18 09:34 DC 09/29/18 09:43 3 ML Fentanyl Citrate (Fentanyl 2ml Vial) 50 mcg 1X ONCE 09/29/18 10:00 09/29/18 10:01 DC 09/29/18 09:56 50 MCG Info (CONTRAST GIVEN -- Rx MONITORING) 1 each PRN DAILY PRN 09/29/18 10:15 09/29/18 13:10 DC Iohexol (Omnipaque 240 Mg/ml) 50 ml 1X ONCE 09/29/18 10:15 09/29/18 10:16 DC 09/29/18 10:15 50 ML Iohexol (Omnipaque 300 Mg/ml) 75 ml 1X ONCE 09/29/18 10:15 09/29/18 10:16 DC 09/29/18 10:15 75 ML Morphine Sulfate (Morphine Sulfate) 5 mg 1X ONCE 09/29/18 10:15 09/29/18 10:16 DC 09/29/18 10:20 5 MG Ondansetron HCl (Zofran) 4 mg 1X ONCE 09/29/18 10:00 09/29/18 10:01 DC 09/29/18 09:55 4 MG Allergies Allergies Allergies Coded Allergies Type Severity Reaction Last Updated Verified adhesive tape Allergy Intermediate 10/25/16 Yes nickel Allergy Intermediate 10/25/16 Yes Physical Exam Physical Exam Constitutional: Well developed, well nourished, no acute distress, non-toxic appearance. [] Neck: Normal range of motion, no tenderness, supple, no stridor. [] Cardiovascular:Heart rate regular rhythm, no murmur [] Lungs & Thorax: Bilateral breath sounds clear to auscultation [] Abdomen: Bowel sounds normal, soft, tenderness to the left flank with palpation , mild suprapubic tenderness, no guarding, no masses, no pulsatile masses. [] Skin: Warm, dry, no erythema, no rash. [] Back: No tenderness, no CVA tenderness. [] Extremities: No tenderness, no cyanosis, no clubbing, ROM intact, no edema. [] Neurologic: Alert and oriented X 3, normal motor function, normal sensory function, no focal deficits noted. [] Psychologic: Affect normal, judgement normal, mood normal. [] Current Patient Data Vital Signs Vital Signs Date Time Temp Pulse Resp B/P (MAP) Pulse Ox O2 Delivery O2 Flow Rate FiO2 09/29/18 12:58 77 16 128/71 (90) 98 Room Air 09/29/18 08:52 99.8 99.8 Lab Values Laboratory Tests Test 09/29/18 08:55 09/29/18 09:30 Urine Collection Type Void Urine Color Yellow Urine Clarity Clear Urine pH 6.0 Urine Specific [place] 1.020 Urine Protein Negative mg/dL (NEG-TRACE) Urine Glucose (UA) Negative mg/dL (NEG) Urine Ketones (Stick) Negative mg/dL (NEG) Urine Blood Negative (NEG) Urine Nitrite Negative (NEG) Urine Bilirubin Negative (NEG) Urine Urobilinogen Dipstick 0.2 mg/dL (0.2 mg/dL) Urine Leukocyte Esterase Negative (NEG) Urine RBC 1-2 /HPF (0-2) Urine WBC 1-4 /HPF (0-4) Urine Squamous Epithelial Cells Mod /LPF Urine Bacteria Few /HPF (0-FEW) Urine Mucus Slight /LPF White Blood Count 7.4 x10^3/uL (4.0-11.0) Red Blood Count 4.62 x10^6/uL (3.50-5.40) Hemoglobin 13.8 g/dL (12.0-15.5) Hematocrit 41.3 % (36.0-47.0) Mean Corpuscular Volume 90 fL (79-100) Mean Corpuscular Hemoglobin 30 pg (25-35) Mean Corpuscular Hemoglobin Concent 33 g/dL (31-37) Red Cell Distribution Width 13.8 % (11.5-14.5) Platelet Count 287 x10^3/uL (140-400) Neutrophils (%) (Auto) 55 % (31-73) Lymphocytes (%) (Auto) 31 % (24-48) Monocytes (%) (Auto) 9 % (0-9) Eosinophils (%) (Auto) 3 % (0-3) Basophils (%) (Auto) 1 % (0-3) Neutrophils # (Auto) 4.1 x10^3uL (1.8-7.7) Lymphocytes # (Auto) 2.3 x10^3/uL (1.0-4.8) Monocytes # (Auto) 0.7 x10^3/uL (0.0-1.1) Eosinophils # (Auto) 0.2 x10^3/uL (0.0-0.7) Basophils # (Auto) 0.1 x10^3/uL (0.0-0.2) Sodium Level 142 mmol/L (136-145) Potassium Level 3.6 mmol/L (3.5-5.1) Chloride Level 105 mmol/L (98-107) Carbon Dioxide Level 26 mmol/L (21-32) Anion Gap 11 (6-14) Blood Urea Nitrogen 17 mg/dL (7-20) Creatinine 0.9 mg/dL (0.6-1.0) Estimated GFR (Cockcroft-Gault) 61.7 BUN/Creatinine Ratio 19 (6-20) Glucose Level 97 mg/dL (70-99) Lactic Acid Level 1.6 mmol/L (0.4-2.0) Calcium Level 8.7 mg/dL (8.5-10.1) Total Bilirubin 0.3 mg/dL (0.2-1.0) Aspartate Amino Transferase (AST) 18 U/L (15-37) Alanine Aminotransferase (ALT) 22 U/L (14-59) Alkaline Phosphatase 53 U/L (46-116) Total Protein 6.9 g/dL (6.4-8.2) Albumin 3.4 g/dL (3.4-5.0) Albumin/Globulin Ratio 1.0 (1.0-1.7) Laboratory Tests 09/29/18 09:30 Laboratory Tests 09/29/18 09:30 EKG EKG [] Radiology/Procedures Radiology/Procedures []PATIENT: JOLENE SHARMA BACCOUNT: [id number]#: [id number] : 1945 LOCATION: ER AGE: 73 SEX: F EXAM STATUS: REG ER ORD. PHYSICIAN: YUE ANTHONY APRN REASON: left flank pain,increasing over two days PROCEDURE: CT ABD PELV W/ORAL&IV CONTRAST CT abdomen and pelvis with contrast. HISTORY: Left flank pain CT scan the abdomen and pelvis was done using 75 mL Omnipaque 300 contrast. There is linear scarring or atelectasis in the lingula without change from an old study. There is a calcified granuloma in the right middle lobe. There is no pleural effusion. A liver lesion is not identified. There is no calcified gallstone or gallbladder wall thickening. Spleen and adrenal glands are normal. Pancreas is normal. There is no mass or hydronephrosis in the kidneys. An intrarenal calculus is not identified. A ureteral calculus is not identified. There is no bowel obstruction or ascites. Appendix is normal. There is not evidence of a diverticulitis. The patient's had a hysterectomy. There is no adenopathy. There is degenerative disc disease in the lower lumbar spine. There is no central spinal stenosis. There is bulging of the disc at several levels. There is lower lumbar facet arthritis especially at L5-S1. IMPRESSION: 1. No renal or ureteral calculus evident. 2. No abdominal or pelvic mass noted. 3. Normal bowel pattern 4. Degenerative changes in the lumbar spine. PQRS Compliance Statement: One or more of the following individualized dose reduction techniques were utilized for this examination: 1. Automated exposure control 2. Adjustment of the mA and/or kV according to patient size 3. Use of iterative reconstruction technique Electronically signed by: Manpreet Agarwal MD (09/29/2018 12:23 PM) [facility] DICTATED and SIGNED BY: MANPREET AGARWAL MD DATE: 09/29/18 1223 Course & Med Decision Making Course & Med Decision Making Pertinent Labs and Imaging studies reviewed. (See chart for details) []Lab work and imaging showed no acute cause for your flank pain. If worsening with increased pain or fever return immediately to the emergency department, otherwise follow-up with your primary care provider for recheck in 3 days. Dragon Disclaimer Dragon Disclaimer This electronic medical record was generated, in whole or in part, using a voice recognition dictation system. Departure Departure Impression: Primary Impression: Flank pain Disposition: 01 HOME, SELF-CARE Condition: STABLE Referrals: JAYME PROCTOR MD (PCP) Patient Instructions: Flank Pain Additional Instructions: No cause was found in the emergency department for your symptoms. Follow-up with your primary care provider in 4 days for recheck or return to the emergency department if worsening. YUE ANTHONY APRN Sep 29, 2018 12:35
[2018-09-29 12:58] VITALS: BP 128/71
== END 2018-09-29 13:06 | disposition home or self-care (01) ==
LOC: ER 08:49
DX: R10.30 Lower abdominal pain, unspecified (principal); R50.9 Fever, unspecified; M51.36 Other intervertebral disc degeneration, lumbar region; J98.11 Atelectasis; F41.9 Anxiety disorder, unspecified; J44.9 Chronic obstructive pulmonary disease, unspecified; F32.9 Major depressive disorder, single episode, unspecified; E78.00 Pure hypercholesterolemia, unspecified; Z90.710 Acquired absence of both cervix and uterus; Z88.8 Allergy status to other drugs, medicaments and biological substances; Z91.09 Other allergy status, other than to drugs and biological substances
CPT/HCPCS: 36415; 71045; 74177; 80053; 81001; 83605; 85025; 87040; 94640; 96374; 96375; 99285; J2270; J2405; J3010; J7620; Q9966; Q9967

== ENCOUNTER → 2019-05-22 | Outpatient (CLI) | payer BC ==
[~2019-05-22] MED LIST changes: +MORP-15 PO; -MORP15TA3 PO
--- NOTE | 2019-05-22 14:27 | RAD ---
EXAM: Chest CT low dose lung screening without intravenous contrast. HISTORY: Lung cancer screening. TECHNIQUE: Computed tomographic images of the chest were obtained without contrast. Multiplanar reformatting was performed. *One or more of the following individualized dose reduction techniques were utilized for this examination: 1. Automated exposure control. 2. Adjustment of the mA and/or kV according to patient size. 3. Use of iterative reconstruction technique. COMPARISON: None. FINDINGS: There is mild pulmonary emphysema. There is no pleural effusion or pneumothorax. There is partial consolidation or scarring involving the lingula. There is also scarring with coarse calcification involving the medial right middle lobe. There is right basilar atelectasis. There is a 7 mm nodule within the right middle lobe along the pleural fissure, likely a fissural lymph node. The heart is normal in size. The aorta is normal in caliber. There is aortic and coronary artery atherosclerosis. There is hepatomegaly and hepatic steatosis. The upper abdomen demonstrates no acute finding. There are degenerative changes throughout the spine. There are laminectomy changes at the mid thoracic levels. There are multiple chronic rib fractures. IMPRESSION: 1. Mild emphysema with superimposed partial consolidation or scarring involving the lingula and medial right middle lobe. 2. 7 mm nodule within the right middle lobe along the right minor fissure, likely due to a fissural lymph node. Lung RADS Category 3. 6 month follow up can be performed to confirm stability. 3. Hepatomegaly and hepatic steatosis. Electronically signed by: Radha Zaman MD (05/22/2019 2:24 PM) [place] [id number]
== END | disposition home or self-care (01) ==
LOC: CT 13:50
PROVIDERS: ATTEND Family Medicine
DX: Z12.2 Encounter for screening for malignant neoplasm of respiratory organs (principal); J43.9 Emphysema, unspecified; K76.0 Fatty (change of) liver, not elsewhere classified; R16.0 Hepatomegaly, not elsewhere classified; I25.10 Atherosclerotic heart disease of native coronary artery without angina pectoris; J98.11 Atelectasis; R91.1 Solitary pulmonary nodule; F17.210 Nicotine dependence, cigarettes, uncomplicated
CPT/HCPCS: G0297

== ENCOUNTER 2020-09-20 20:47 | Emergency (ER) | payer MEDICARE, BC ==
[~2020-09-20] VITALS: Ht 152.4 cm; Wt 84.5 kg
[~2020-09-20 20:47] MED LIST changes: -CETI10TA22 PO; +CETI10TA74 PO; -ROPI1TAB2 PO; +ROPI1TAB4 PO
[2020-09-20 22:29] LABS: BASO # 0.2 x10^3/uL (0.0-0.2); BASO % 1 % (0-3); EOS # 0.1 x10^3/uL (0.0-0.7); EOS % 0 % (0-3); HEMOGLOBIN 14.1 g/dL (12.0-15.5); LYMPH % 25 % (24-48); MEAN CORPUSCULAR HEMOGLOBIN 28 pg (25-35); MEAN CORPUSCULAR HGB CONC 33 g/dL (31-37); MEAN CORPUSCULAR VOLUME 85 fL (79-100); MONO # 1.2 x10^3/uL (0.0-1.1); MONO % 8 % (0-9); NEUT # 10.6 x10^3/uL (1.8-7.7); NEUT % 66 % (31-73); PLATELET COUNT 415 x10^3/uL (140-400); RED BLOOD COUNT 5.05 x10^6/uL (3.50-5.40); RED CELL DISTRIBUTION WIDTH 16.9 % (11.5-14.5)
--- NOTE | 2020-09-20 22:41 | RAD ---
Exam: Chest one view INDICATION: Dizziness, tachycardia TECHNIQUE: Frontal view of the chest Comparisons: 09/29/2018 FINDINGS: The cardiomediastinal silhouette and pulmonary vessels are within normal limits. The lung and pleural spaces are clear. IMPRESSION: No acute cardiopulmonary process. Electronically signed by: Saroj Nicole MD (09/20/2020 10:38 PM) [facility]
[2020-09-20 22:44] LABS: ALBUMIN 3.9 g/dL (3.4-5.0); CALCIUM 9.4 mg/dL (8.5-10.1); CREATININE 1.3 mg/dL (0.6-1.0); GFR 40.2; TOTAL BILIRUBIN 0.4 mg/dL (0.2-1.0); TOTAL PROTEIN 7.9 g/dL (6.4-8.2)
[2020-09-20 22:46] LABS: POTASSIUM 2.3 mmol/L (3.5-5.1)
[2020-09-20] MEDS ORDERED: POTASSIUM BICARB 20 MEQ EFFERVESCENT TABLET. PO ONE (23:00)
[2020-09-20] MEDS ORDERED: POTASSIUM CHLORIDE 10MEQ 100 ML IV SCH (23:15)
--- NOTE | 2020-09-20 23:25 | EKG ---
[facility] [address] [place] [address] Test Date: 2020-09-20 Test Time: 21:03:32 Pat Name: JOLENE SHARMA Department: Room: Gender: F Accounts Payable Supervisor: : 1945 Requested By: NINA MCCLELLAND Order Number: [id number] Reading MD: Measurements Intervals [place] Rate: 112 P: MA: QRS: 22 QRSD: 82 T: 18 QT: 368 QTc: 504 Interpretive Statements IRREGULAR RHYTHM, NO P-WAVE FOUND ST & T ABNORMALITY, CONSIDER ANTERIOR ISCHEMIA OR LEFT VENTRICULAR STRAIN INFERIOR ISCHEMIA OR LEFT VENTRICULAR STRAIN ABNORMAL ECG RI6.02 No previous ECG available for comparison
--- NOTE | 2020-09-20 23:35 | PHYS DOC ---
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 Patient has had symptoms on and off since may. Patient with past medical history of covid. Has been seen by post [facility] pulmonology and has an upcoming appointment with pos t [facility] cardiology. Today patient felt dizzy, became clammy, had leg cramping and felt that she cou ld not function. Due to todays symptoms patient called 911 and was transported to [facility] for evaluation. After waiting 4 hours in ER waiting room patient LWBS and presents here for evaluation. Review of Systems: Review of Systems: Review of systems: Constitutional symptoms- No fever, no chills. Eyes- No Discharge, No Visual Loss Respiratory symptoms- Positive shortness of breath, No wheezing, No Dyspnea on Exertion Cardiovascular Systems; No chest pain, Positive Palpitations, No syncope Gastrointestinal symptoms: NO abdominal pain, no nausea, no vomiting or d iarrhea. Genitourinary symptoms: No dysuria. Musculoskeletal symptoms: No back pain Positive extremity pain. NEUROLOGICAL Symptoms: No headache, no generalized weakness; No focal Weakness Heart Score: C/O Chest Pain: N/A Risk Factors: Risk Factors: DM, Current or recent (<one month) smoker, HTN, HLP, family history of CAD, obesity. Risk Scores: Score 0 - 3: 2.5% MACE over next 6 weeks - Discharge Home Score 4 - 6: 20.3% MACE over next 6 weeks - Admit for Clinical Observation Score 7 - 10: 72.7% MACE over next 6 weeks - Early Invasive Strategies Current Medications: Current Medications Medications (Trade) Dose Ordered Sig/Deja Start Time Stop Time Status Last Admin Dose Admin Potassium Bicarbonate (Potassium Effervescent Tablet) 40 meq 1X ONCE 09/20/20 23:00 09/20/20 23:01 DC 09/20/20 23:29 40 MEQ Potassium Chloride/Water 100 ml @ 100 mls/hr Q1H 09/20/20 23:15 09/21/20 00:14 09/20/20 23:29 100 MLS/HR Allergies: Allergies: Allergies Coded Allergies Type Severity Reaction Last Updated Verified adhesive tape Allergy Intermediate 10/25/16 Yes nickel Allergy Intermediate 10/25/16 Yes Physical Exam: PE: General: alert, no acute distress. Skin: warm, dry and intact. Head:: Normocephalic, atraumatic. Neck: Trachea midline. Eyes: EOMI, Normal conjunctiva, No drainage CARDIOVASCULAR: Regular rate and rhythm RESPIRATORY: No respiratory distress Back: Full range of motion. MUSCULOSKELETAL: Full range of motion of bilateral upper and lower extremities. GASTROINTESTINAL: Abdomen soft without rebound or guarding. NEUROLOGICAL: Alert and noted to person, place and time. No neurological deficits observed Psychiatric: Cooperative. Normal judgment Current Patient Data: Labs: Laboratory Tests Test 09/20/20 21:18 White Blood Count 16.0 x10^3/uL (4.0-11.0) H Red Blood Count 5.05 x10^6/uL (3.50-5.40) Hemoglobin 14.1 g/dL (12.0-15.5) Hematocrit 43.0 % (36.0-47.0) Mean Corpuscular Volume 85 fL (79-100) Mean Corpuscular Hemoglobin 28 pg (25-35) Mean Corpuscular Hemoglobin Concent 33 g/dL (31-37) Red Cell Distribution Width 16.9 % (11.5-14.5) H Platelet Count 415 x10^3/uL (140-400) H Neutrophils (%) (Auto) 66 % (31-73) Lymphocytes (%) (Auto) 25 % (24-48) Monocytes (%) (Auto) 8 % (0-9) Eosinophils (%) (Auto) 0 % (0-3) Basophils (%) (Auto) 1 % (0-3) Neutrophils # (Auto) 10.6 x10^3/uL (1.8-7.7) H Lymphocytes # (Auto) 4.0 x10^3/uL (1.0-4.8) Monocytes # (Auto) 1.2 x10^3/uL (0.0-1.1) H Eosinophils # (Auto) 0.1 x10^3/uL (0.0-0.7) Basophils # (Auto) 0.2 x10^3/uL (0.0-0.2) Sodium Level 139 mmol/L (136-145) Potassium Level 2.3 mmol/L (3.5-5.1) *L Chloride Level 93 mmol/L (98-107) L Carbon Dioxide Level 34 mmol/L (21-32) H Anion Gap 12 (6-14) Blood Urea Nitrogen 28 mg/dL (7-20) H Creatinine 1.3 mg/dL (0.6-1.0) H Estimated GFR (Cockcroft-Gault) 40.2 BUN/Creatinine Ratio 22 (6-20) H Glucose Level 117 mg/dL (70-99) H Calcium Level 9.4 mg/dL (8.5-10.1) Total Bilirubin 0.4 mg/dL (0.2-1.0) Aspartate Amino Transferase (AST) 18 U/L (15-37) Alanine Aminotransferase (ALT) 37 U/L (14-59) Alkaline Phosphatase 44 U/L (46-116) L Troponin I Quantitative < 0.017 ng/mL (0.000-0.055) Total Protein 7.9 g/dL (6.4-8.2) Albumin 3.9 g/dL (3.4-5.0) Albumin/Globulin Ratio 1.0 (1.0-1.7) Laboratory Tests 09/20/20 21:18 Laboratory Tests 09/20/20 21:18 Vital Signs: Vital Signs Date Time Temp Pulse Resp B/P (MAP) Pulse Ox O2 Delivery O2 Flow Rate FiO2 09/20/20 20:56 98.2 110 19 156/86 (109) 98 Room Air 98.2 EKG: EKG: [] EKG performed at 2103 Heart rate 112 sinus tachycardia Radiology/Procedures: Radiology/Procedures: [] Course & Med Decision Making: Course & Med Decision Making Pertinent Labs and Imaging studies reviewed. (See chart for details) [] Patient was evaluated for chief complaint. Work-up consisted of laboratory analysis and radiologic imaging. Labs performed patient noted to have a low potassium. Treatment included oral and IV potassium. Patient was discharged home with instructions to continue home prescription potassium. 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 Efrain Disclaimer: Efrain Disclaimer: This electronic medical record was generated, in whole or in part, using a voice recognition dictation system. Departure Departure Impression: Primary Impression: Dizziness Additional Impressions: Hypokalemia Dehydration Disposition: 01 DC HOME SELF CARE/HOMELESS Condition: STABLE Referrals: JAYME PROCTOR MD (PCP) Patient Instructions: Dehydration, Adult, Dizziness, Hypokalemia NINA MCCLLELAND DO Sep 20, 2020 23:35
[2020-09-21 01:26] VITALS: BP 124/60
== END 2020-09-21 01:36 | disposition home or self-care (01) ==
LOC: ER 20:47
DX: R42 Dizziness and giddiness (principal); E86.0 Dehydration; E87.6 Hypokalemia; R00.2 Palpitations; R06.02 Shortness of breath; J44.9 Chronic obstructive pulmonary disease, unspecified; F32.9 Major depressive disorder, single episode, unspecified; E78.00 Pure hypercholesterolemia, unspecified; F41.9 Anxiety disorder, unspecified; F17.200 Nicotine dependence, unspecified, uncomplicated; Z90.710 Acquired absence of both cervix and uterus; Z98.890 Other specified postprocedural states; Z88.8 Allergy status to other drugs, medicaments and biological substances
CPT/HCPCS: 36415; 71045; 80053; 84484; 85025; 93005; 96365; 99285; J3480